=== PATIENT | male | born 1960 | race Caucasian/White ===

== ENCOUNTER → 2016-12-02 | Outpatient (CLI) | payer MEDICAID ==
[~2016-12-02] MED LIST: ALBU0.8322 IH; ALBU2.5V4 IN; ALBU2.5V4 NEB; ALBU8.5H2 IH; ALBUTEROL 0.083% NEB IH; ALBUTEROL INH; AMIT50TA3 PO; AMOX500C2 PO; ANTIBIOTIC; ASP325TEC PO; ASP81TEC PO; BP MED; BSP10T PO; CARV12.53 PO; CARV6.252 PO; CHOL2000 PO; CHOL5000 PO; CLIN-62 PO; CLOP75TA PO; CLPD75T PO; CRESTOR40 MG PO; CYCL10TA9 PO; DIAZ5TAB3 PO; DICL75TA2 PO; DICY20TA57 PO; DOXY100C2 PO; DULO60CA6 PO; ESZO3TAB30 PO; EZET10TA5 PO; FLT05NA16 NSEACH; FLUT1DIS26 IH; FLUT1DIS27 INH; FURO40TA4 PO; GABA600T2 PO; GBPN300C PO; GEMF600T3 PO; GLUCOPHAGE PO; Glucophage PO; HYDR-3714 PO; IOHEXOL 350 MG/ML 100 ML (OMNIPAQUE 350) VIAL IV ONE; ISM30TCR PO; KCL20TCR PO; LIRA0.6P3 SC; LISI20TA PO; LISI5TAB PO; LORA10CA PO; LRT10T PO; LVT.025T PO; MAGN400T6 PO; MELO-195 PO; METF1000 PO; MTF500T PO; NAPR-243 PO; NAPR1TAB21 PO; NAPR250T2 PO; NITR0.3T6 SL; NS 100 ML (IVPB) BAG IV ONE; NTR.4SL SL; OMEG1CAP51 PO; OMEP-10 PO; OXYC-12 PO; OXYC1CAP3 PO; OXYC1TAB25 PO; PRD20T PO; PRD50T PO; PREG50C PO; PS30T PO; QTP25T PO; RANI75TA30 PO; RMP2.5C PO; SIMV40TA4 PO; SUMA100T2 PO; TEMA15CA54 PO; TIOT18CA IH; TIOT18CA PO; TRAM50TA2 PO; VORT10TA PO; WAL ZAN PO; zocor
[2016-12-02] MEDS: CATHETER FLUSH 10 ML SYR IV PRN ×2 (10:00→10:02)
--- NOTE | 2016-12-02 13:30 | Diagnostic Imaging Report ---
PROCEDURE: CT chest with contrast only. TECHNIQUE: Multiple contiguous axial images were obtained through the chest after administration of intravenous contrast. INDICATION: Pulmonary nodules. COMPARISON: 05/10/14 exam. 75 cc of Omnipaque 350 is administered intravenously. FINDINGS: Previously seen nodules in the lung bases based on CT abdomen on 11/08/2016 are again noted with the largest nodule in posterior subpleural location measuring 7 mm and up to 4 mm size in the right lower lobe. These appear slightly more prominent compared to 11/08/16 exam. There is also a 4 mm nodule in the right middle lobe, image 32 along the minor fissure. This nodule appears to be present on 2014 exam. The nodules in the lung bases are new from 2014. There is no significant consolidation or mass. The heart size is normal. No pericardial or pleural effusion. No significantly enlarged mediastinal lymph node is seen. There is no lymphadenopathy in the axilla. The liver demonstrates diffuse hepatic steatosis. Minimal nonspecific thickening in the left adrenal gland is seen. The osseous structures demonstrate mild degenerative changes in the lower thoracic spine. IMPRESSION: Indeterminate bilateral lower lobe pulmonary nodules up to 7 mm in size. Followup unenhanced low-dose CT scan of the chest in 4-6 months is recommended. Dictated by: Dictated on workstation # [id number]
--- NOTE | 2016-12-02 15:14 | Diagnostic Imaging Report ---
KUB. INDICATION: Right kidney stone. FINDINGS: No definitive stones are identified. There is moderate amount of fecal material and silhouette related to enteric content in the abdomen. Vascular calcifications projecting over the pelvis seen. IMPRESSION: No definite stone identified. A small nonobstructive right kidney stone seen on recent CT scan is not visible on this radiograph. Dictated by: Dictated on workstation # [id number]
== END ==
LOC: RAD 08:55
PROVIDERS: ATTEND Nurse Practitioner Family
DX: R91.8 Other nonspecific abnormal finding of lung field (principal); N20.0 Calculus of kidney
CPT/HCPCS: 71260; 74000

== ENCOUNTER → 2017-02-06 | Outpatient (RCR) | payer MEDICAID ==
[~2017-02-06] MED LIST changes: -IOHEXOL 350 MG/ML 100 ML (OMNIPAQUE 350) VIAL IV ONE; -NS 100 ML (IVPB) BAG IV ONE
== END | disposition home or self-care (01) ==
LOC: WOUNDCARE 11-08 09:43
PROVIDERS: ATTEND Surgery
DX: L97.311 Non-pressure chronic ulcer of right ankle limited to breakdown of skin (principal); I87.331 Chronic venous hypertension (idiopathic) with ulcer and inflammation of right lower extremity; E11.622 Type 2 diabetes mellitus with other skin ulcer; I50.20 Unspecified systolic (congestive) heart failure; I89.0 Lymphedema, not elsewhere classified
CPT/HCPCS: 11042; 88305; 99212; 99213

== ENCOUNTER 2017-02-20 09:33 | Outpatient (RCR) | payer MEDICAID | END 2017-02-20 16:00 | disposition home or self-care (01) | LOC: WOUNDCARE 09:33 | PROVIDERS: ATTEND Surgery | DX: L97.311 Non-pressure chronic ulcer of right ankle limited to breakdown of skin (principal); I87.331 Chronic venous hypertension (idiopathic) with ulcer and inflammation of right lower extremity; E11.622 Type 2 diabetes mellitus with other skin ulcer; I50.20 Unspecified systolic (congestive) heart failure; I89.0 Lymphedema, not elsewhere classified | CPT/HCPCS: 99212 ==

== ENCOUNTER → 2017-02-20 | Outpatient (CLI) | payer MEDICAID ==
--- NOTE | 2017-02-20 11:35 | Diagnostic Imaging Report ---
EXAMINATION: Right lower extremity duplex venous ultrasound. TECHNIQUE: DVT protocol. Multiple sonographic images with color Doppler and waveform interrogation were performed of the right lower extremity veins with compression and augmentation maneuvers. INDICATION: Right leg pain, edema, and ulcers. FINDINGS: The right lower extremity veins from the groin to below the knee veins were examined with normal color-flow, compressibility and normal waveform demonstrated. The great saphenous vein is patent. IMPRESSION: No evidence of DVT in the right lower extremity. Dictated by: Dictated on workstation # [id number]
== END ==
LOC: RAD 10:41
PROVIDERS: ATTEND Surgery
DX: E11.622 Type 2 diabetes mellitus with other skin ulcer (principal); L97.212 Non-pressure chronic ulcer of right calf with fat layer exposed; I87.331 Chronic venous hypertension (idiopathic) with ulcer and inflammation of right lower extremity; I50.20 Unspecified systolic (congestive) heart failure; T65.222A Toxic effect of tobacco cigarettes, intentional self-harm, initial encounter; M79.661 Pain in right lower leg

== ENCOUNTER 2017-08-01 20:39 | Emergency (ER) | payer MEDICAID ==
[~2017-08-01] VITALS: Ht 180.3 cm; Wt 102.1 kg
[2017-08-01 22:35] LABS: BASOPHILS % (AUTO) 0 % (0-10); EOSINOPHILS # (AUTO) 0.2 10^3/uL (0.0-0.3); EOSINOPHILS % (AUTO) 2 % (0-10); LYMPHOCYTES # (AUTO) 1.9 X 10^3 (1.0-4.0); LYMPHOCYTES % (AUTO) 15 % (12-44); MEAN CORPUSCULAR HEMOGLOBIN 29 PG (25-34); MEAN CORPUSCULAR HGB CONC 33 G/DL (32-36); MEAN CORPUSCULAR VOLUME 86 FL (80-99); MEAN PLATELET VOLUME 10.8 FL (7.4-10.4); MONOCYTES # (AUTO) 1.6 X 10^3 (0.0-1.0); MONOCYTES % (AUTO) 13 % (0-12); NEUTROPHILS # (AUTO) 8.7 X 10^3 (1.8-7.8); NEUTROPHILS % (AUTO) 70 % (42-75); PLATELET COUNT 211 10^3/uL (130-400); RED BLOOD COUNT 5.32 10^6/uL (4.35-5.85); RED CELL DISTRIBUTION WIDTH 13.8 % (10.0-14.5); WHITE BLOOD COUNT 12.4 10^3/uL (4.3-11.0)
[2017-08-01 22:45] LABS: INR 0.9 (0.8-1.4); PROTHROMBIN TIME PATIENT 12.7 SEC (12.2-14.7)
[2017-08-01 22:52] LABS: ERYTHROCYTE SEDIMENTATION RATE 13 MM/HR (0-30)
[2017-08-01 23:03] LABS: ALANINE AMINOTRANSFERASE 16 U/L (0-55); ALBUMIN 3.5 GM/DL (3.2-4.5); ANION GAP 14 MMOL/L (5-14); ASPARTATE AMINO TRANSFERASE 14 U/L (5-34); BILIRUBIN,TOTAL 0.4 MG/DL (0.1-1.0); BLOOD UREA NITROGEN 26 MG/DL (7-18); BUN/CREATININE RATIO 27; CALCIUM 9.4 MG/DL (8.5-10.1); CARBON DIOXIDE 24 MMOL/L (21-32); CHLORIDE 101 MMOL/L (98-107); CREATININE SERUM 0.98 MG/DL (0.60-1.30); GFR ESTIMATED > 60; GLUCOSE 180 MG/DL (70-105); MAGNESIUM 2.2 MG/DL (1.8-2.4); POTASSIUM 3.9 MMOL/L (3.6-5.0); SODIUM 139 MMOL/L (135-145); TOTAL PROTEIN 7.6 GM/DL (6.4-8.2)
[2017-08-02] MEDS ORDERED: CLINDAMYCIN INJECTION 900 MG in NS (IVPB) 50 ML IV ONE (00:45)
[2017-08-02] MEDS ORDERED: CLIN300C11 PO (00:51)
--- NOTE | 2017-08-02 00:52 | ED Lower Extremity ---
General Chief Complaint: Lower Extremity Stated Complaint: RT LEG SWELLING/PAIN Nursing Triage Note: c/o R lower leg swelling with redness starting 1 day prior Nursing Sepsis Screen: No Definite Risk Source: patient (SOMEWHAT DIFFICULT HISTORIAN--CHANGES STORY/GIVES CONFLICTING) History of Present Illness Time seen by provider: 22:05 Initial Comments C/O RIGHT LEG PAIN, REDNESS AND SWELLING SINCE YESTERDAY STATES THIS IS A CHRONIC /FREQUENT PROBLEM, AND HAS HAD DVT'S IN BOTH LEGS SINCE 2006--STATES "THE FIRST TIME I HAD 4 BLOOD CLOTS IN MY RIGHT LEG AND 5 BLOOD CLOTS IN MY LEFT LEG" PT STATES HE IS SUPPOSED TO BE ON AN UNKNOWN BLOOD THINNER, BUT HAS NOT BEEN TAKING ANY FOR UNKNOWN LENGTH OF TIME --QUIT TAKING THEM. THEN LATER STATES HE IS SUPPOSED TO BE ON THE BLOOD THINNER BECAUSE HE HAS A STENT IN HIS HEART AND NOT FOR THE BLOOD CLOTS IN HIS LEG PT STATES HE ALSO HAS CHRONIC LEG SWELLING AND IS SUPPOSED TO BE ON LASIX, BUT DOES NOT TAKE THAT EITHER, BECAUSE IT MAKES HIM URINATE ALL THE TIME. PT HAS NOT TAKEN ANY OF HIS MEDICATIONS FOR A LONG TIME, AND WHEN HE DID TAKE THEM, HE NEVER TOOK THEM PRESCRIBED, AND ONLY TOOK THEM WHEN HE FELT LIKE IT , WHICH WAS NOT VERY OFTEN PT ALSO HAS BEEN VERY NON-COMPLIANT WITH ANY FOLLOW UP VISITS WITH HATTIE OR WITH DR. PITTMAN IN GENERAL PT ALSO LATER STATES THAT HE HAS BEEN TO WOUND CARE IN THE PAST FOR CHRONIC DIABETIC LEG ULCERS, BUT NOT FOR A LONG TIME. HAS A CHRONIC AREA OF IRRITATED, SCABBED AREA TO MEDIAL ASPECT OF RIGHT LOWER LEG/MEDIAL ANKLE AREA. BUT NO DRAINAGE OR BOB ULCERS AT THIS TIME. PT DENIES FEVER NO CHEST PAIN, PALPITATIONS OR SHORTNESS OF BREATH PT STATES NO PARESTHESIAS OR MOTOR DEFICITS ( BUT HAS PREVIOUS DX OF NEUROPATHY ) PCP: HATTIE PIPELAYING FITTER AGUEDA JIMENEZ AUTOMAT WATCHER: DR. PITTMAN Allergies and Home Medications Allergies Coded Allergies: Sulfa (Sulfonamide Antibiotics) (Verified Allergy, Unknown, 05/09/14) Home Medications Albuterol 8.5 Gm Hfa.aer.ad, 2 PUFF IH QID, (Reported) Albuterol Sulfate 0.83 Mg/Ml Solution, 0.83 MG NEB QID, (Reported) Aspirin 81 Mg Tabec, 81 MG PO DAILY, (Reported) Buspirone Hcl 10 Mg Tablet, 10 MG PO TID, (Reported) Carvedilol 12.5 Mg Tablet, 12.5 MG PO BID, (Reported) Cholecalciferol 5,000 Unit Capsule, 50,000 UNIT PO DAILY, (Reported) Clindamycin HCl 300 Mg Capsule, 300 MG PO QID, #40 Prescribed by: LIZA GODFREY on 08/02/17 0051 Clopidogrel 75 Mg Tablet, 75 MG PO DAILY, (Reported) Cyclobenzaprine Hcl 10 Mg Tablet, 10 MG PO TID PRN for MUSCLE SPASMS, (Reported) NEEDED FOR MUSCLE SPASMS Dicyclomine Hcl 20 Mg Tablet, 20 MG PO QID PRN for IRRITAL BOWEL SYNDROME, ( Reported) NEEDED FOR IRRITAL BOWEL SYNDROME Eszopiclone 3 Mg Tablet, 3 MG PO HS PRN for SLEEP, (Reported) NEEDED FOR SLEEP Ezetimibe 10 Mg Tablet, 10 MG PO DAILY, (Reported) Fluticasone Propionate 16 Gm [place], 1 SPRAYS NSEACH DAILY, (Reported) Fluticasone/Salmeterol 1 Disk Inhp, 1 PUFF INH BID, (Reported) Furosemide 40 Mg Tablet, 40 MG PO BID PRN for FLUID RETENTION, (Reported) AN NEEDED FOR FLUID RETENTION Gemfibrozil 600 Mg Tablet, 600 MG PO BID, (Reported) Isosorbide Mononitrate 30 Mg Tab, 30 MG PO DAILY, (Reported) Levothyroxine Sodium 25 Mcg Tablet, 25 MCG PO DAILY, (Reported) Liraglutide 0.6 Mg/0.1 Ml Pen.injctr, 1.8 MG SC DAILY WITH MEAL, (Reported) Lisinopril 20 Mg Tablet, 20 MG PO DAILY, (Reported) Loratadine 10 Mg Capsule, 10 MG PO DAILY PRN for ALLERGIES, (Reported) NEEDED FOR ALLERGIES Magnesium Oxide 400 Mg Tablet, 400 MG PO DAILY, (Reported) Metformin Hcl 1,000 Mg Tablet, 1,000 MG PO BID, (Reported) Nitroglycerin 0.3 Mg Tab.subl, 0.3 MG SL PRN PRN for CHEST PAIN, (Reported) PRN CHEST PAIN [place]-3 Fatty Acids/Fish Oil 1 Each Capsule, 1,000 MG PO BID, (Reported) Oxycodone Hcl/Acetaminophen 1 Tab Tablet, 1-2 TAB PO Q6H PRN for PAIN, (Reported ) 5-325MG NEEDED FOR PAIN Potassium Chloride 20 Meq Tabsr, 20 MEQ PO DAILY PRN for WITH LASIX , (Reported) TAKE WITH LAXIS NEEDED Pregabalin 50 Mg Cap, 50 MG PO TID PRN for NERVE PAIN, (Reported) NEEDED FOR NERVE PAIN Rosuvastatin Calcium 40 Mg Tablet, 40 MG PO DAILY, (Reported) Tiotropium [place] 1 Inh Aerp, 1 PUFF IH BID, (Reported) Vortioxetine Hydrobromide 10 Mg Tablet, 10 MG PO DAILY, (Reported) [Wal-[place]udy 150] , 300 MG PO DAILY, (Reported) Constitutional: no symptoms reported Respiratory: no symptoms reported Cardiovascular: no symptoms reported Musculoskeletal: see HPI Skin: see HPI Psychiatric/Neurological: See HPI Past Qwvuiht-Briqht-Ubbyzo Hx Patient Social History Alcohol Use: Occasionally Uses (HEAVIER USE IN THE PAST) Recreational Drug Use: Yes (THC) Smoking Status: Current Everyday Smoker (UP TO 3 PPD ) Type Used: Cigarettes Recent Foreign Travel: No Contact w/Someone Who Travel: No Recent Infectious Disease Expo: No Recent Hopitalizations: No Physical Abuse: No Sexual Abuse: No Immunizations Up To Date Tetanus Booster (TDap): Unknown Date of Pneumonia Vaccine: Jul 28, 2013 Date of Influenza Vaccine: Jul 28, 2013 Surgeries History of Surgeries: Yes (BACK-LOWER LUMBER, HERNIA REPAIR, LITHOTRIPSY, CARDIAC CATH WITH STENT) Surgeries: Abdominal, Cardiac, Coronary Stent, Orthopedic, Renal Respiratory History of Respiratory Disorde: Yes Respiratory Disorders: Sleep Apnea, COPD, Emphysema Currently Using CPAP: Yes Currently Using BIPAP: No Cardiovascular History of Cardiac Disorders: Yes (CARDIAC CATH WITH STENT) Cardiac Disorders: Chronic Edema/Swelling, Coronary Artery Disease, Deep Vein Thrombosis, Heart Attack, High Cholesterol, Hypertension, Peripheral Vascular Neurological History of Neurological Disord: Yes Neurological Disorders: Headaches /Migraines, Neuropathy Reproductive System Hx Reproductive Disorders: No Genitourinary History of Genitourinary Disor: Yes Genitourinary Disorders: Kidney Stones Gastrointestinal History of Gastrointestinal Di: Yes (UMBILICAL HERNIA) Gastrointestinal Disorders: Abdominal Hernia, Gastroesophageal Reflux Musculoskeletal History of Musculoskeletal Dis: Yes Musculoskeletal Disorders: Degenerate Disk Disease, Arthritis, Chronic Back Pain Endocrine History of Endocrine Disorders: Yes Endocrine Disorders: Hypothyroidsim, Diabetes, Non-Insulin dep Cancer History of Cancer: No Psychosocial History of Psychiatric Problem: Yes Behavioral Health Disorders: Depression Suicide Risk Score: 0 Integumentary History of Skin or Integumenta: Yes (DIABETIC LEG ULCERS--LAST TX AT WOUND CARE 01/2017--RIGHT CALF WOUND, LEG CELLULITIS; "STAPH" INFECTIONS, PER PT. ) Skin/Integumentary Disorders: Eczema, Psoriasis Blood Transfusions History of Blood Disorders: No Physical Exam Vital Signs Vital Sign - Last 12Hours 08/01/17 21:26 Temp 98.5 Pulse 94 Resp 18 B/P (MAP) 121/78 Pulse Ox 96 Capillary Refill : Less Than 3 Seconds General Appearance: WD/WN, no apparent distress, other (REEKS OF CIGARETTES) Cardiovascular: regular rate, rhythm Respiratory: normal breath sounds Legs: right leg other (MARKED ERYTHEM AND WARMTH TO RIGHT LOWER LEG AND FOOT-- EXTENDS TO JUST BELOW KNEE. 3+ EDEMA OF RIGHT LEG. CHRONIC APPEARING AREA OF SCALING, SCABBING, MACERATION WITH TINY AREAS OF FISSURING TO SKIN TO MEDIAL ASPECT OF RIGHT LOWER LEG/MEDIAL ANKLE AREA WITHOUT DISCRETE ULCERATION. NO DRAINAGE. CHRONIC VENOUS STASIS CHANGES TO BILATERAL LOWER LEGS. UNABLE TO PALPATE PULSES IN FEET BUT FEET ARE EQUALLY COOL AND SLIGHTLY DUSKY, WITH GROSS MOTOR INTACT. SLIGHTLY DECREASED SENSATION TO FEET BILATERALLY. 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, alert, normal mood/affect, oriented x 3 Skin: normal color, warm/dry, other ( ABOVE) Progress/Results/Core Measures Results/Orders Lab Results Laboratory Tests Test 08/01/17 22:30 Range/Units White Blood Count 12.4 H 4.3-11.0 10^3/uL Red Blood Count 5.32 4.35-5.85 10^6/uL Hemoglobin 15.2 13.3-17.7 G/DL Hematocrit 46 40-54 % Mean Corpuscular Volume 86 80-99 FL Mean Corpuscular Hemoglobin 29 25-34 PG Mean Corpuscular Hemoglobin Concent 33 32-36 G/DL Red Cell Distribution Width 13.8 10.0-14.5 % Platelet Count 211 130-400 10^3/uL Mean Platelet Volume 10.8 H 7.4-10.4 FL Neutrophils (%) (Auto) 70 42-75 % Lymphocytes (%) (Auto) 15 12-44 % Monocytes (%) (Auto) 13 H 0-12 % Eosinophils (%) (Auto) 2 0-10 % Basophils (%) (Auto) 0 0-10 % Neutrophils # (Auto) 8.7 H 1.8-7.8 X 10^3 Lymphocytes # (Auto) 1.9 1.0-4.0 X 10^3 Monocytes # (Auto) 1.6 H 0.0-1.0 X 10^3 Eosinophils # (Auto) 0.2 0.0-0.3 10^3/uL Basophils # (Auto) 0.0 0.0-0.1 10^3/uL Erythrocyte Sedimentation Rate 13 0-30 MM/HR Prothrombin Time 12.7 12.2-14.7 SEC INR Comment 0.9 0.8-1.4 Activated Partial Thromboplast Time 28 24-35 SEC D-Dimer 0.83 H 0.00-0.49 UG/ML Sodium Level 139 135-145 MMOL/L Potassium Level 3.9 3.6-5.0 MMOL/L Chloride Level 101 98-107 MMOL/L Carbon Dioxide Level 24 21-32 MMOL/L Anion Gap 14 5-14 MMOL/L Blood Urea Nitrogen 26 H 7-18 MG/DL Creatinine 0.98 0.60-1.30 MG/DL Estimat Glomerular Filtration Rate > 60 BUN/Creatinine Ratio 27 Glucose Level 180 H 70-105 MG/DL Calcium Level 9.4 8.5-10.1 MG/DL Magnesium Level 2.2 1.8-2.4 MG/DL Total Bilirubin 0.4 0.1-1.0 MG/DL Aspartate Amino Transf (AST/SGOT) 14 5-34 U/L Alanine Aminotransferase (ALT/SGPT) 16 0-55 U/L Alkaline Phosphatase 59 40-136 U/L C-Reactive Protein High Sensitivity 24.10 H 0.00-0.50 MG/DL B-Type Natriuretic Peptide < 10.0 <100.0 PG/ML Total Protein 7.6 6.4-8.2 GM/DL Albumin 3.5 3.2-4.5 GM/DL My Orders Orders - LIZA GODFREY DO Saline Lock/Iv-Start (08/01/17 22:12) BNP (08/01/17 22:12) Cbc With Automated Diff (08/01/17 22:12) Comprehensive Metabolic Panel (08/01/17 22:12) Hs C Reactive Protein (08/01/17 22:12) Erythrocyte Sedimentation Rate (08/01/17 22:12) Fibrin Degradation Products (08/01/17 22:12) Magnesium (08/01/17 22:12) Protime With Inr (08/01/17 22:12) Partial Thromboplastin Time (08/01/17 22:12) Blood Culture (08/01/17 22:12) Us Venous Lower Ext Rt (08/01/17 22:12) Clindamycin Injection (Cleocin Injection (08/02/17 00:45) Medications Given in ED Current Medications Medications Dose Ordered Sig/Sergio Route Start Time Stop Time Status Last Admin Dose Admin Clindamycin Phosphate 900 mg/ Sodium Chloride 56 ml @ 100 mls/hr ONCE ONCE IV 08/02/17 00:45 08/02/17 01:12 DC 08/02/17 00:55 100 MLS/HR Vital Signs/I&O Vital Sign - Last 12Hours 08/01/17 08/02/17 21:26 01:11 Temp 98.5 98.5 Pulse 94 90 Resp 18 20 B/P (MAP) 121/78 Pulse Ox 96 98 Blood Pressure Mean: 92 Diagnostic Imaging Comments ULTRASOUND / DOPPLER RIGHT LEG--NO DVT PER TECH REPORT AT 2344 AND PER [facility] VIA FAX AT 0033 Departure Communication (PCP) 0045--SPOKE WITH DR. Caitlin GOLD, PT HAS NORMAL WBC, NO FEVER AND HAS NOT HAD TRIAL OF ORAL ANTIBIOTICS AT THIS POINT, AND PT PREFERS TO GO HOME AND FOLLOW UP IN CLINIC--WILL GIVE PT IV CLINDAMYCIN HERE AND SEND HOME WITH RX FOR CLINDAMYCIN AND SHE WILL SEE PT IN CLINIC AT 1:40 PM ON Monday08/03/17 Impression Impression: Primary Impression: CELLULITIS RIGHT LOWER LEG AND FOOT Additional Impressions: NIDDM Non-compliance Peripheral neuropathy Peripheral vascular disease Disposition: HOME, SELF-CARE Condition: Stable Departure-Patient Inst. Referrals: FREDY ELIZONDO DO (PCP) Primary Care Physician AGUEDA JIMENEZ (Family) Primary Care Physician MAGDALENA GOLD MD Patient Instructions: Cellulitis (Skin Infection), Adult (DC), Diabetes and Infections Add. Discharge Instructions: ELEVATE LEG MUCH POSSIBLE FOLLOW UP WITH DR. Caitlin GOLD ON MONDAY AT 1:40 AT [facility] RETURN TO ER IF WORSE All discharge instructions reviewed with patient and/or family. Voiced understanding. Scripts Clindamycin HCl (Clindamycin HCl) 300 Mg Capsule 300 MG PO QID for FOR INFECTION, #40 CAP Prov: LIZA GODFREY DO 08/02/17 LIZA GODFREY DO Aug 02, 2017 00:51
[2017-08-02 01:11] VITALS: BP 121/79
--- NOTE | 2017-08-02 06:39 | Diagnostic Imaging Report ---
PROCEDURE: US right lower extremity venous. TECHNIQUE: Multiple real-time grayscale images were obtained over the right lower extremity in various projections. Additional duplex Doppler and color Doppler images were also obtained. INDICATION: Right lower extremity pain. FINDINGS: There is normal color flow enhancement from the external iliac vein to the ankle. Calf compression shows normal augmentation of flow at the popliteal level. No evidence of popliteal cyst. IMPRESSION: No evidence of venous thrombosis, right lower extremity. These findings are concordant with the preliminary report. Dictated by: Dictated on workstation # [id number]
== END 2017-08-02 01:11 | disposition home or self-care (01) ==
LOC: EDUNIT# 20:39 → ER 20:41
DX: L03.115 Cellulitis of right lower limb (principal); G62.9 Polyneuropathy, unspecified; E11.51 Type 2 diabetes mellitus with diabetic peripheral angiopathy without gangrene; I73.9 Peripheral vascular disease, unspecified; I25.10 Atherosclerotic heart disease of native coronary artery without angina pectoris; I25.2 Old myocardial infarction; E78.00 Pure hypercholesterolemia, unspecified; I10 Essential (primary) hypertension; G43.909 Migraine, unspecified, not intractable, without status migrainosus; K21.9 Gastro-esophageal reflux disease without esophagitis; M19.90 Unspecified osteoarthritis, unspecified site; E03.9 Hypothyroidism, unspecified; E11.40 Type 2 diabetes mellitus with diabetic neuropathy, unspecified; E11.621 Type 2 diabetes mellitus with foot ulcer; L97.219 Non-pressure chronic ulcer of right calf with unspecified severity; F32.9 Major depressive disorder, single episode, unspecified; G47.30 Sleep apnea, unspecified; F17.210 Nicotine dependence, cigarettes, uncomplicated; F12.10 Cannabis abuse, uncomplicated; Z86.718 Personal history of other venous thrombosis and embolism; Z87.19 Personal history of other diseases of the digestive system; Z91.14 Patient's other noncompliance with medication regimen; Z87.442 Personal history of urinary calculi; Z95.5 Presence of coronary angioplasty implant and graft; Z79.82 Long term (current) use of aspirin; Z79.84 Long term (current) use of oral hypoglycemic drugs
CPT/HCPCS: 36415; 80053; 83735; 83880; 85025; 85379; 85610; 85652; 85730; 86141; 87040; 96374

== ENCOUNTER 2017-08-03 12:30 | Inpatient (IN) | payer MEDICAID ==
[~2017-08-03] VITALS: Ht 181.6 cm; Wt 109.8 kg
[~2017-08-03 12:30] MED LIST changes: +CLIN300C11 PO
--- OUTSIDE RECORDS SUMMARY | 2017-08-03 15:21 | XMS REPORT ---
Author Author AGUEDA JIMENEZ Organization [employer] Address Unknown Phone Unavailable Care Team Providers Care Marker Maker Name Role Phone AGUDEA JIMENEZ CP Unavailable Allergies No Known Allergies Problems Problem Type Condition Code Onset Dates Condition Status Problem Obstructive chronic bronchitis, with (acute) exacerbation 491.21 Active Problem Other specified disorder of skin 709.8 Active Problem Unspecified hereditary and idiopathic peripheral neuropathy 356.9 Active Problem Hypertension 401.9 Active Assessment Type 2 diabetes mellitus with diabetic neuropathy, unspecified E11.40 Active Problem Hyperlipemia 272.4 Active Problem Type 2 diabetes mellitus with diabetic neuropathy, unspecified E11.40 Active Problem Disorders of magnesium metabolism 275.2 Active Problem Unspecified essential hypertension 401.9 Active Problem CAD (coronary artery disease) 414.00 Active Problem Chest pain, unspecified 786.50 Active Problem Plantar fascial fibromatosis 728.71 Active Problem Generalized osteoarthrosis, unspecified site 715.00 Active Problem Nondependent tobacco use disorder 305.1 Active Problem Diabetes with neurological manifestations, type II or unspecified type , not stated as uncontrolled 250.60 Active Problem Benign neoplasm of colon 211.3 Active Problem Unspecified vitamin D deficiency 268.9 Active Problem Depressive disorder, not elsewhere classified 311 Active Problem Unspecified hypothyroidism 244.9 Active Problem Anxiety state, unspecified 300.00 Active Problem Cervicalgia 723.1 Active Medications No Known Medications Results No Known Results Summary Purpose [employer] Submission
--- OUTSIDE RECORDS SUMMARY | 2017-08-03 15:21 | XMS REPORT ---
Author Author AGUEDA JIMENEZ [facility] [employer] Address Unknown Phone Unavailable Care Team Providers Care Patient Access Registrar Name Role Phone AGUEDA JIMENEZ Unavailable Allergies, Adverse Reactions, Alerts Substance Reaction Event Type SulfADIAZINE Info Not Available Drug Allergy Problems Problem Type Condition Code Onset Dates Condition Status Problem Essential hypertension I10 Active Problem Type 2 diabetes mellitus with diabetic neuropathy E11.40 Active Problem Neuropathy G62.9 Active Problem Syncope, unspecified syncope type R55 Active Problem Cellulitis of right lower leg L03.115 Active Problem Left anterior knee pain M25.562 Active Problem Hyperlipemia E78.5 Active Problem Diabetes mellitus type 2, uncontrolled E11.65 Active Problem COPD (chronic obstructive pulmonary disease) J44.9 Active Problem Hypertension I10 Active Assessment CAD (coronary artery disease) I25.10 Active Assessment Left anterior knee pain M25.562 Active Assessment Syncope, unspecified syncope type R55 Active Problem Sleep apnea G47.30 Active Problem CAD (coronary artery disease) I25.10 Active Problem Chronic pain G89.29 Active Problem Mixed hyperlipidemia E78.2 Active Problem Depression F32.9 Active Problem Acquired hypothyroidism E03.9 Active Medications Medication Code System Code Instructions Start Date End Date Status Dosage Vytorin [facility] [address]-49 10-10 MG Orally Once a day 1 tablet ProAir HFA [facility] [address]-49 108 (90 Base) MCG/ACT INHALE TWO PUFFS BY MOUTH EVERY 4 TO 6 HOURS NEEDED Advair Diskus [facility] [address]-69 500-50 MCG/DOSE INHALE ONE PUFF BY MOUTH TWICE DAILY BusPIRone HCl [facility] [address]-46 10 MG TAKE ONE TABLET BY MOUTH TWICE DAILY Plavix [facility] 78493831867 75 MG TAKE ONE TABLET BY MOUTH DAILY Ranitidine HCl [facility] 88556332750 150 MG TAKE ONE TABLET BY MOUTH TWICE DAILY Lyrica [facility] [address]-75 75 MG Orally 3 times a day 1 capsule Spiriva HandiHaler [facility] [address]-21 18 MCG INHALE CONTENTS OF ONE CAPSULE BY MOUTH ONCE DAILY (TWO INHALATIONS PER ONE CAPSULE) Rozerem [facility] [address]-31 8 MG TAKE ONE TABLET BY MOUTH DAILY AT BEDTIME FOR SLEEP Lisinopril [facility] [address]-14 20 mg Orally Once a day 1 tablet Brintellix [facility] 87433263145 10 MG TAKE ONE TABLET BY MOUTH DAILY AT THE SAME TIME EACH DAY Metformin HCl [facility] [address]-87 1000 MG oral twice daily with morning and evening meals 1 tablet Levothyroxine Sodium [facility] [address]-85 25 MCG Orally Once a day 1 tablet Cyclobenzaprine HCl [facility] [address]-15 10 MG TAKE ONE TABLET BY MOUTH THREE TIMES DAILY NEEDED Naproxen [facility] [address]-27 500 MG TAKE ONE TABLET BY MOUTH TWICE DAILY Albuterol Sulfate [facility] 36551254162 (2.5 MG/3ML) 0.083% USE ONE VIAL PER NEBULIZER EVERY 4 HOURS NEEDED FOR WHEEZING OR COUGH Isosorbide Mononitrate CR [facility] 95055648193 30 MG TAKE ONE TABLET BY MOUTH DAILY Carvedilol [facility] 23141027154 12.5 MG TAKE ONE TABLET BY MOUTH TWICE DAILY Procedures Procedure Coding System Code Date LAB NOT BILLED BY [facility] CPT-4 NOBLL June 14, 2016 VENIPUNCT, ROUTINE* CPT-4 46186 June 14, 2016 X-RAY EXAM OF KNEE, 3 CPT-4 31777 June 14, 2016 TORADOL (IM) 15 MG/ML (UP TO 15 MG) CPT-4 J1885 June 14, 2016 Office Visit, Est Pt., Level 4 CPT-4 17843 June 14, 2016 THER/PROPH/DIAG INJ, SC/IM CPT-4 97019 June 14, 2016 Vital Signs Date/Time: June 14, 2016 Cardiac Monitoring Heart Rate 84 bpm Weight 257.0 lbs Height 70 in Blood Pressure Diastolic 82 mmHg Blood Pressure Systolic 138 mmHg Results No Known Results Summary Purpose [employer] Submission
--- OUTSIDE RECORDS SUMMARY | 2017-08-03 15:21 | XMS REPORT ---
Author Author AGUEDA JIMENEZ Organization [employer] Address Unknown Phone Unavailable Care Team Providers Care Supply Chain Coordinator Name Role Phone AGUEDA JIMENEZ CP Unavailable Allergies No Known Allergies Problems Problem Type Condition ICD-9 Code Onset Dates Condition Status Problem Nondependent tobacco use disorder 305.1 Active Problem Diabetes with neurological manifestations, type II or unspecified type , not stated as uncontrolled 250.60 Active Problem Obstructive chronic bronchitis, with (acute) exacerbation 491.21 Active Problem Plantar fascial fibromatosis 728.71 Active Problem Unspecified hereditary and idiopathic peripheral neuropathy 356.9 Active Problem Generalized osteoarthrosis, unspecified site 715.00 Active Problem Other specified disorder of skin 709.8 Active Problem Disorders of magnesium metabolism 275.2 Active Problem Unspecified essential hypertension 401.9 Active Problem Chronic dental pain 525.9 Active Problem Hypertension 401.9 Active Problem Polyuria 788.42 Active Problem Other specified local infections of skin and subcutaneous tissue 686.8 Active Problem Sinusitis 473.9 Active Problem Pain in joint, forearm 719.43 Active Problem Diabetes mellitus type 2, uncontrolled 250.02 Active Problem Chest pain, unspecified 786.50 Active Problem Hyperlipemia 272.4 Active Problem CAD (coronary artery disease) 414.00 Active Problem Anxiety state, unspecified 300.00 Active Problem Benign neoplasm of colon 211.3 Active Problem Other dyspnea and respiratory abnormalities 786.09 Active Problem Depressive disorder, not elsewhere classified 311 Active Problem Unspecified hypothyroidism 244.9 Active Problem Cervicalgia 723.1 Active Problem Diabetes mellitus without mention of complication, type II or unspecified type, uncontrolled 250.02 Active Problem Unspecified vitamin D deficiency 268.9 Active Medications Medication Code System Code Instructions Start Date End Date Status Dosage Lisinopril [facility] [address]-58 20 MG TAKE ONE TABLET BY MOUTH DAILY Vytorin [facility] [address]-83 10-10 MG Orally Once a day. PT NEEDS FASTING LABS April 14, 2015 1 tablet Results No Known Results Summary Purpose [employer] Submission
--- OUTSIDE RECORDS SUMMARY | 2017-08-03 15:21 | XMS REPORT ---
Author Author AGUEDA JIMENEZ Organization eClinicalWorks Address Unknown Phone Unavailable Care Team Providers Care Roll Scale Worker Name Role Phone AGUEDA JIMENEZ CP Unavailable Allergies No Known Allergies Problems Problem Type Condition Code Onset Dates Condition Status Problem Depression F32.9 Active Problem Chronic pain G89.29 Active Problem Neuropathy G62.9 Active Problem Essential hypertension I10 Active Problem Type 2 diabetes mellitus with diabetic neuropathy E11.40 Active Problem CAD (coronary artery disease) I25.10 Active Problem Sleep apnea G47.30 Active Problem Acquired hypothyroidism E03.9 Active Problem Mixed hyperlipidemia E78.2 Active Medications Medication Code System Code Instructions Start Date End Date Status Dosage Lyrica [facility] [address]-33 75 MG TAKE ONE CAPSULE BY MOUTH THREE TIMES DAILY FOR FIBROMYALGIA OR IDIOPATHIC NEUROPATHY Results No Known Results Summary Purpose eClinicalWorks Submission
--- OUTSIDE RECORDS SUMMARY | 2017-08-03 15:21 | XMS REPORT ---
Author Author FREDY ELIZONDO [facility] eClinicalWorks Address Unknown Phone Unavailable Care Team Providers Care Manager Demand Name Role Phone FREDY ELIZONDO CP Unavailable Allergies No Known Allergies Problems [...] Instructions Start Date End Date Status Dosage Oxycodone-Acetaminophen [facility] [address]-45 7.5-325 MG Orally 3 times a day prn- must last 4 weeks June 12, 2015 1 tablet as needed Results No Known Results Summary Purpose eClinicalWorks Submission
--- OUTSIDE RECORDS SUMMARY | 2017-08-03 15:21 | XMS REPORT ---
Author Author AGUEDA JIMENEZ [facility] eClinicalWorks Address Unknown Phone Unavailable Care Team Providers Care Soaking Pit Operator Name Role Phone AGUEDA JIMENEZ CP Unavailable Allergies, Adverse Reactions, Alerts Substance Reaction Event Type SulfADIAZINE Info Not Available Drug Allergy Problems Problem Type Condition Code Onset Dates Condition Status Assessment Type 2 diabetes mellitus with diabetic neuropathy E11.40 Active Problem Depression F32.9 Active Problem Chronic pain G89.29 Active Problem Neuropathy G62.9 Active Problem Essential hypertension I10 Active Problem Type 2 diabetes mellitus with diabetic neuropathy E11.40 Active Problem CAD (coronary artery disease) I25.10 Active Problem Sleep apnea G47.30 Active Problem Acquired hypothyroidism E03.9 Active Problem Mixed hyperlipidemia E78.2 Active Assessment Chronic pain G89.29 Active Assessment Depression F32.9 Active Assessment Upper respiratory infection J06.9 Active Assessment COPD (chronic obstructive pulmonary disease) J44.9 Active Assessment Mixed hyperlipidemia E78.2 Active Assessment Acquired hypothyroidism E03.9 Active Assessment Sleep apnea G47.30 Active Assessment Essential hypertension I10 Active Assessment CAD (coronary artery disease) I25.10 Active Assessment Neuropathy G62.9 Active Medications Medication Code System Code Instructions Start Date End Date Status Dosage Levothyroxine Sodium [facility] [address]-27 25 MCG Orally Once a day 1 tablet Lisinopril [facility] [address]-32 20 MG TAKE ONE TABLET BY MOUTH DAILY Oxycodone-Acetaminophen [facility] [address]-17 7.5-325 MG Orally 3 times a day- must last 30 days June 12, 2015 1 tablet as needed Albuterol Sulfate [facility] 48544243198 (2.5 MG/3ML) 0.083% USE ONE VIAL PER NEBULIZER EVERY 4 HOURS NEEDED FOR WHEEZING OR COUGH Brintellix [facility] 36238171810 10 MG TAKE ONE TABLET BY MOUTH DAILY AT THE SAME TIME EACH DAY Cyclobenzaprine HCl [facility] 13845955340 10 MG TAKE ONE TABLET BY MOUTH THREE TIMES DAILY NEEDED BusPIRone HCl NDC 31858119832 10 MG TAKE ONE TABLET BY MOUTH TWICE DAILY ProAir HFA [facility] 33425238435 108 (90 Base) MCG/ACT INHALE TWO PUFFS BY MOUTH EVERY 4 TO 6 HOURS NEEDED Carvedilol [facility] 08631930872 12.5 MG TAKE ONE TABLET BY MOUTH TWICE DAILY Naprosyn [facility] [address]-18 500 MG Orally every 12 hrs 1 tablet as needed Vytorin [facility] [address]-74 10-10 MG Orally Once a day April 14, 2015 1 tablet Naproxen [facility] 06811797466 500 MG TAKE ONE TABLET BY MOUTH TWICE DAILY Metformin HCl [facility] [address]-96 1000 MG TAKE ONE TABLET BY MOUTH TWICE DAILY WITH MORNING AND EVENING MEALS Spiriva HandiHaler [facility] 79828494947 18 MCG INHALE CONTENTS OF ONE CAPSULE BY MOUTH ONCE DAILY (TWO INHALATIONS PER ONE CAPSULE) Advair Diskus [facility] 22742270862 500-50 MCG/DOSE INHALE ONE PUFF BY MOUTH TWICE DAILY Lyrica [facility] 82093069841 75 MG TAKE ONE CAPSULE BY MOUTH THREE TIMES DAILY FOR FIBROMYALGIA OR IDIOPATHIC NEUROPATHY Doxycycline Hyclate [facility] [address]-40 100 MG Orally every 12 hrs Oct 06, 2015 Oct 16, 2015 1 capsule Triamcinolone Acetonide [facility] [address]-36 0.1 % Externally Three times a day prn Aug 15, 2015 1 application to affected area Plavix [facility] 54043384739 75 MG TAKE ONE TABLET BY MOUTH DAILY Isosorbide Mononitrate CR [facility] 87818357386 30 MG TAKE ONE TABLET BY MOUTH DAILY Ranitidine HCl [facility] 40812567142 150 MG TAKE ONE TABLET BY MOUTH TWICE DAILY Rozerem [facility] [address]-79 8 MG at hs prn for sleep TAKE ONE TABLET BY MOUTH DAILY Procedures Procedure Coding System Code Date ASSAY THYROID STIM HORMONE CPT-4 11090 Oct 06, 2015 COMPREHEN METABOLIC PANEL CPT-4 31593 Oct 06, 2015 GLYCATED HEMOGLOBIN TEST CPT-4 36149 Oct 06, 2015 VENIPUNCT, ROUTINE* CPT-4 29933 Oct 06, 2015 Office Visit, Est Pt., Level 4 CPT-4 70765 Oct 06, 2015 Vital Signs Date/Time: Oct 06, 2015 Temperature 97.0 F Weight 270.3 lbs Height 70 in BMI 38.78 Index Blood Pressure Diastolic 98 mmHg Blood Pressure Systolic 172 mmHg Cardiac Monitoring Heart Rate 80 bpm Results Name Result Date Reference Range Unit Abnormality Flag A1C (IN HOUSE) Summary Purpose eClinicalWorks Submission
--- OUTSIDE RECORDS SUMMARY | 2017-08-03 15:22 | XMS REPORT ---
Author Author AGUEDA JIMENEZ [facility] eClinicalWorks Address Unknown Phone Unavailable Care Team Providers Care Culinary Arts Instructor Name Role Phone AGUEDA JIMENEZ CP Unavailable Allergies, Adverse Reactions, Alerts Substance Reaction Event Type SulfADIAZINE Info Not Available Drug Allergy Problems Problem Type Condition ICD-9 Code Onset Dates Condition Status Assessment Itching 698.9 Active Problem Nondependent tobacco use disorder 305.1 [...] Date End Date Status Dosage Vytorin [facility] [address]-08 10-10 MG Orally Once a day. PT NEEDS FASTING LABS April 14, 2015 1 tablet Spiriva HandiHaler [facility] 38337714549 18 MCG INHALE CONTENTS OF ONE CAPSULE BY MOUTH ONCE DAILY (TWO INHALATIONS PER ONE CAPSULE) Ranitidine HCl [facility] 10543973690 150 MG TAKE ONE TABLET BY MOUTH TWICE DAILY BusPIRone HCl [facility] 70853833397 10 MG TAKE ONE TABLET BY MOUTH TWICE DAILY Plavix [facility] 64778177382 75 MG TAKE ONE TABLET BY MOUTH DAILY Levothyroxine Sodium [facility] [address]-26 25 MCG Orally Once a day 1 tablet Carvedilol [facility] 86639298604 12.5 MG TAKE ONE TABLET BY MOUTH TWICE DAILY Oxycodone-Acetaminophen [facility] [address]-83 7.5-325 MG Orally 3 times a day- must last 30 days June 12, 2015 1 tablet as needed Albuterol Sulfate [facility] 85389742888 (2.5 MG/3ML) 0.083% USE ONE VIAL PER NEBULIZER EVERY 4 HOURS NEEDED FOR WHEEZING OR COUGH Naprosyn [facility] [address]-16 500 MG Orally every 12 hrs 1 tablet as needed ProAir HFA [facility] 43504358250 108 (90 Base) MCG/ACT INHALE TWO PUFFS BY MOUTH EVERY 4 TO 6 HOURS NEEDED Metformin HCl [facility] [address]-28 1000 MG TAKE ONE TABLET BY MOUTH TWICE DAILY WITH MORNING AND EVENING MEALS Lyrica [facility] 93918959859 75 MG TAKE ONE CAPSULE BY MOUTH THREE TIMES DAILY FOR FIBROMYALGIA OR IDIOPATHIC NEUROPATHY Rozerem [facility] [address]-16 8 MG at hs prn for sleep TAKE ONE TABLET BY MOUTH DAILY Advair Diskus [facility] 42524026223 500-50 MCG/DOSE INHALE ONE PUFF BY MOUTH TWICE DAILY Brintellix [facility] 18799695388 10 MG TAKE ONE TABLET BY MOUTH DAILY AT THE SAME TIME EACH DAY Isosorbide Mononitrate CR [facility] 71875787752 30 MG TAKE ONE TABLET BY MOUTH DAILY Triamcinolone Acetonide [facility] [address]-53 0.1 % Externally Three times a day prn Aug 15, 2015 1 application to affected area Naproxen [facility] 80339337457 500 MG TAKE ONE TABLET BY MOUTH TWICE DAILY Lisinopril [facility] [address]-65 20 MG TAKE ONE TABLET BY MOUTH DAILY Cyclobenzaprine HCl [facility] 27705495163 10 MG TAKE ONE TABLET BY MOUTH THREE TIMES DAILY NEEDED Augmentin [facility] [address]-25 875-125 MG Orally every 12 hrs Aug 08, 2015 Aug 18, 2015 1 tablet Procedures Procedure Coding System Code Date Office Visit, Est Pt., Level 3 CPT-4 20050 Aug 15, 2015 Vital Signs Date/Time: Aug 15, 2015 Temperature 97.7 F Weight 266.4 lbs Height 70 in BMI 38.22 Index Blood Pressure Diastolic 86 mmHg Blood Pressure Systolic 138 mmHg Cardiac Monitoring Heart Rate 88 bpm Results No Known Results Summary Purpose eClinicalWorks Submission
--- OUTSIDE RECORDS SUMMARY | 2017-08-03 15:22 | XMS REPORT ---
Author Author JELLY CAREY eClinicalWorks Address Unknown Phone Unavailable Care Team Providers Care Shopping Investigator Name Role Phone JELLY CAREY Unavailable Allergies, Adverse Reactions, Alerts Substance Reaction Event Type SulfADIAZINE Info Not Available Drug Allergy Problems Problem Type Condition Code Onset Dates Condition Status Problem Neuropathy G62.9 Active Problem Diabetes mellitus type 2, uncontrolled E11.65 Active Problem Type 2 diabetes mellitus with diabetic neuropathy E11.40 Active Problem Syncope, unspecified syncope type R55 Active Assessment Hyperlipemia E78.5 Active Problem Cellulitis of right lower leg L03.115 Active Assessment Claudication I73.9 Active Problem Left anterior knee pain M25.562 Active Problem Hypertension I10 Active Problem Hyperlipemia E78.5 Active Problem Claudication I73.9 Active Problem COPD (chronic obstructive pulmonary disease) J44.9 Active Assessment Chest pain, unspecified type R07.9 Active Problem Chronic pain G89.29 Active Assessment CAD (coronary artery disease) I25.10 Active Assessment Dyspnea, unspecified type R06.00 Active Problem CAD (coronary artery disease) I25.10 Active Problem Mixed hyperlipidemia E78.2 Active Problem Depression F32.9 Active Problem Acquired hypothyroidism E03.9 Active Problem Sleep apnea G47.30 Active Problem Essential hypertension I10 Active Medications Medication Code System Code Instructions Start Date End Date Status Dosage Plavix [facility] 89739955433 75 MG TAKE ONE TABLET BY MOUTH DAILY Rozerem [facility] [address]-68 8 MG TAKE ONE TABLET BY MOUTH DAILY AT BEDTIME FOR SLEEP Levothyroxine Sodium [facility] [address]-56 25 MCG Orally Once a day 1 tablet Lisinopril [facility] [address]-14 20 mg Orally Once a day 1 tablet Isosorbide Mononitrate CR [facility] 10554771523 30 MG TAKE ONE TABLET BY MOUTH DAILY Vytorin [facility] 35044164197 10-10 MG Orally Once a day 1 tablet BusPIRone HCl [facility] [address]-62 10 MG TAKE ONE TABLET BY MOUTH TWICE DAILY Albuterol Sulfate [facility] 21784839497 (2.5 MG/3ML) 0.083% USE ONE VIAL PER NEBULIZER EVERY 4 HOURS NEEDED FOR WHEEZING OR COUGH Cyclobenzaprine HCl [facility] [address]-74 10 MG TAKE ONE TABLET BY MOUTH THREE TIMES DAILY NEEDED ProAir HFA [facility] [address]-99 108 (90 Base) MCG/ACT INHALE TWO PUFFS BY MOUTH EVERY 4 TO 6 HOURS NEEDED Spiriva HandiHaler [facility] [address]-50 18 MCG INHALE CONTENTS OF ONE CAPSULE BY MOUTH ONCE DAILY (TWO INHALATIONS PER ONE CAPSULE) Aspirin Adult Low Dose [facility] [address]-46 81 MG Orally Once a day 1 tablet Brintellix [facility] 66715037145 10 MG TAKE ONE TABLET BY MOUTH DAILY AT THE SAME TIME EACH DAY Lyrica [facility] [address]-96 75 MG Orally 3 times a day 1 capsule Carvedilol [facility] 88487228753 12.5 MG TAKE ONE TABLET BY MOUTH TWICE DAILY Advair Diskus [facility] [address]-22 500-50 MCG/DOSE INHALE ONE PUFF BY MOUTH TWICE DAILY Naproxen [facility] [address]-51 500 MG TAKE ONE TABLET BY MOUTH TWICE DAILY Ranitidine HCl [facility] [address]-32 150 MG TAKE ONE TABLET BY MOUTH TWICE DAILY Metformin HCl [facility] [address]-07 1000 MG oral twice daily with morning and evening meals 1 tablet Procedures Procedure Coding System Code Date Office Visit, Est Pt., Level 4 CPT-4 30771 Jul 06, 2016 MEASURE BLOOD OXYGEN LEVEL [facility]-4 07609 Jul 06, 2016 Vital Signs Date/Time: Jul 06, 2016 Cardiac Monitoring Heart Rate 86 bpm Weight 257 lbs Height 70 in BMI 36.87 Index Oximetry 98 % Blood Pressure Diastolic 84 mmHg Blood Pressure Systolic 132 mmHg Results No Known Results Summary Purpose eClinicalWorks Submission
--- OUTSIDE RECORDS SUMMARY | 2017-08-03 15:22 | XMS REPORT ---
Author Author AGUEDA JIMENEZ Organization eClinicalWorks Address Unknown Phone Unavailable Care Team Providers Care Mri Manager Name Role Phone AGUEDA JIMENEZ CP Unavailable [...] Instructions Start Date End Date Status Dosage Hydrocodone-Acetaminophen [facility] [address]-94 7.5-325 MG Orally every 6 hrs Aug 08, 2015 Aug 13, 2015 1 tablet as needed Results No Known Results Summary Purpose eClinicalWorks Submission
--- OUTSIDE RECORDS SUMMARY | 2017-08-03 15:22 | XMS REPORT ---
Author Author AGUEDA JIMENEZ Organization eClinicalWorks Address Unknown Phone Unavailable Care Team Providers Care Clinical Biostatistics Director Name Role Phone AGUEDA JIMENEZ CP Unavailable Allergies No Known Allergies Problems Problem Type Condition Code Onset Dates Condition Status Problem Obstructive chronic bronchitis, with (acute) exacerbation 491.21 Active Problem Other specified disorder of skin 709.8 Active Problem Unspecified hereditary and idiopathic peripheral neuropathy 356.9 Active Problem Hypertension 401.9 Active Problem Hyperlipemia 272.4 Active Problem Type [...] 300.00 Active Problem Cervicalgia 723.1 Active Medications Medication Code System Code Instructions Start Date End Date Status Dosage Lisinopril [facility] [address]-14 20 MG TAKE ONE TABLET BY MOUTH DAILY Vytorin [facility] [address]-29 10-10 MG Orally Once a day April 14, 2015 1 tablet Isosorbide Mononitrate CR [facility] 46163514975 30 MG TAKE ONE TABLET BY MOUTH DAILY Albuterol Sulfate [facility] 82792134715 (2.5 MG/3ML) 0.083% USE ONE VIAL PER NEBULIZER EVERY 4 HOURS NEEDED FOR WHEEZING OR COUGH Carvedilol [facility] 92558451899 12.5 MG TAKE ONE TABLET BY MOUTH TWICE DAILY Results No Known Results Summary Purpose eClinicalWorks Submission
--- OUTSIDE RECORDS SUMMARY | 2017-08-03 15:22 | XMS REPORT ---
Author Author AGUEDA JIMENEZ Organization eClinicalWorks Address Unknown Phone Unavailable Care Team Providers Care Zipper Setter Lockstitch Name Role Phone AGUEDA JIMENEZ CP Unavailable [...] Start Date End Date Status Dosage Oxycodone-Acetaminophen [facility] [address]-40 7.5-325 MG Orally 3 times a day prn- must last 30 days June 12, 2015 1 tablet as needed Results No Known Results Summary Purpose eClinicalWorks Submission
--- OUTSIDE RECORDS SUMMARY | 2017-08-03 15:22 | XMS REPORT ---
Author Author AGUEDA JIMENEZ Organization eClinicalWorks Address Unknown Phone Unavailable Care Team Providers Care Silo Worker Name Role Phone AGUEDA JIMENEZ CP Unavailable Allergies No Known Allergies Problems Problem Type Condition Code Onset Dates Condition Status Problem Mixed hyperlipidemia E78.2 Active Problem Essential hypertension I10 Active Problem Acquired hypothyroidism E03.9 Active Problem COPD (chronic obstructive pulmonary disease) J44.9 Active Problem Hypertension I10 Active Problem Cellulitis of right lower leg L03.115 Active Problem Type 2 diabetes mellitus with diabetic neuropathy E11.40 Active Problem Neuropathy G62.9 Active Problem Hyperlipemia E78.5 Active Problem Diabetes mellitus type 2, uncontrolled E11.65 Active Problem Chronic pain G89.29 Active Problem Depression F32.9 Active Problem Sleep apnea G47.30 Active Problem CAD (coronary artery disease) I25.10 Active Medications No Known Medications Results No Known Results Summary Purpose eClinicalWorks Submission
--- OUTSIDE RECORDS SUMMARY | 2017-08-03 15:22 | XMS REPORT ---
Author Author AGUEDA JIMENEZ [facility] Address [address] [place] [address] Care Team Providers Care Environmental Designer Name Role Phone AGUEDA JIMENEZ Unavailable PROBLEMS Type Condition ICD9-CM Code [id number] Code Onset Dates Condition Status SNOMED Code Problem Hypertension I10 Active 32462437 Problem Claudication I73.9 Active 148304176 Problem COPD (chronic obstructive pulmonary disease) J44.9 Active 19666192 Problem Pulmonary nodules R91.8 Active 265005663 Problem Right kidney stone N20.0 Active 55084641 Problem Type 2 diabetes mellitus with diabetic polyneuropathy, without long- term current use of insulin E11.42 Active 37265475 Problem Type 2 diabetes mellitus with diabetic nephropathy, 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 Active 75281735 Problem Renal calculus, right N20.0 Active 05650863 Problem Ulcer of foot, right, limited to breakdown of skin L97.511 Active 02213101 Problem Mixed hyperlipidemia E78.2 Active 574343100 Problem Essential hypertension I10 Active 33098901 Problem CAD (coronary artery disease) I25.10 Active 06594400 Problem Depression F32.9 Active 91623298 Problem Acquired hypothyroidism E03.9 Active 265311999 Problem Sleep apnea G47.30 Active 78691012 Problem Neuropathy G62.9 Active 008859704 Problem Hyperlipemia E78.5 Active 29347136 ALLERGIES Unknown Allergies SOCIAL HISTORY No smoking Hx information available PLAN OF CARE VITAL SIGNS MEDICATIONS Medication Instructions Dosage Frequency Start Date End Date Duration Status Lasix 40 mg Orally Once a day 1 tablet 24h Nov, 10 days Active Potassium Chloride ER 20 MEQ Orally Once a day 1 tablet with food 24h Nov, 10 days Active RESULTS No Results PROCEDURES No Known procedures IMMUNIZATIONS No Known Immunizations
--- OUTSIDE RECORDS SUMMARY | 2017-08-03 15:22 | XMS REPORT ---
Author Author AGUEDA JIMENEZ [facility] Address [address] [place] [address] Care Team Providers Care Sales/Marketing Name Role Phone AGUEDA JIMENEZ Unavailable PROBLEMS Type Condition ICD9-CM Code [id number] Code Onset Dates Condition Status SNOMED Code Problem Hypertension I10 Active 27736027 Problem Claudication I73.9 Active 906448985 Problem COPD (chronic obstructive pulmonary disease) J44.9 Active 82049426 Problem Pulmonary nodules R91.8 Active 263400276 Problem Right kidney stone N20.0 Active 65207524 Problem Type 2 diabetes mellitus with diabetic polyneuropathy, without long- term current use of insulin E11.42 Active 42807999 Problem Type 2 diabetes mellitus with diabetic nephropathy, 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 Active 53285860 Problem Renal calculus, right N20.0 Active 66330276 Problem Ulcer of foot, right, limited to breakdown of skin L97.511 Active 57485804 Problem Mixed hyperlipidemia E78.2 Active 874003961 Problem Essential hypertension I10 Active 33867100 Problem CAD (coronary artery disease) I25.10 Active 27521774 Problem Depression F32.9 Active 37342911 Problem Acquired hypothyroidism E03.9 Active 415462790 Problem Sleep apnea G47.30 Active 34081697 Problem Neuropathy G62.9 Active 421977298 Problem Hyperlipemia E78.5 Active 55784104 ALLERGIES Unknown Allergies SOCIAL HISTORY No smoking Hx information available PLAN OF CARE VITAL SIGNS MEDICATIONS Medication Instructions Dosage Frequency Start Date End Date Duration Status Ketoconazole 2 % Externally Once a day 1 application to affected area 24h Nov, Nov, 14 days Active RESULTS No Results PROCEDURES No Known procedures IMMUNIZATIONS No Known Immunizations
--- OUTSIDE RECORDS SUMMARY | 2017-08-03 15:22 | XMS REPORT ---
Author Author AGUEDA JIMENEZ Organization [facility] Address [address] [place] [address] Care Team Providers Care Electrical Panel Builder Name Role Phone AGUEDA JIMENEZ Unavailable PROBLEMS Type Condition ICD9-CM Code GPR09-RN Code Onset Dates Condition Status SNOMED Code Problem Hypertension I10 Active 44945791 Problem Claudication I73.9 Active 550553801 Problem COPD (chronic obstructive pulmonary disease) J44.9 Active 31388420 Problem Pulmonary nodules R91.8 Active 800679105 Problem Right kidney stone N20.0 Active 11471493 Problem Type 2 diabetes mellitus with diabetic nephropathy, 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 Active 27117526 Problem Type 2 diabetes mellitus with diabetic polyneuropathy, without long- term current use of insulin E11.42 Active 96774870 Problem Renal calculus, right N20.0 Active 89182835 Problem Ulcer of foot, right, limited to breakdown of skin L97.511 Active 02437659 Problem Depression F32.9 Active 02252535 Problem Sleep apnea G47.30 Active 52772108 Problem Acquired hypothyroidism E03.9 Active 811827875 Problem Essential hypertension I10 Active 62665363 Problem CAD (coronary artery disease) I25.10 Active 77201205 Problem Neuropathy G62.9 Active 550739844 Problem Mixed hyperlipidemia E78.2 Active 086500755 Problem Hyperlipemia E78.5 Active 12393259 ALLERGIES Unknown Allergies SOCIAL HISTORY No smoking Hx information available PLAN OF CARE VITAL SIGNS MEDICATIONS Unknown Medications RESULTS Name Result Date Reference Range BUN BUN CREATININE, SERUM Creatinine, Serum eGFR If NonAfricn Am eGFR If Africn Am PROCEDURES Procedure Date Ordered Related Diagnosis Body Site LAB NOT BILLED BY [facility] Nov 24, 2016 IMMUNIZATIONS No Known Immunizations
--- OUTSIDE RECORDS SUMMARY | 2017-08-03 15:23 | XMS REPORT ---
Author Author AGEUDA JIMENEZ Organization eClinicalWorks Address Unknown Phone Unavailable Care Team Providers Care Fiber Drier Operator Name Role Phone AGUEDA JIMENEZ CP [...] J44.9 Active Problem Hypertension I10 Active Problem Sleep apnea G47.30 Active Problem CAD (coronary artery disease) I25.10 Active Problem Chronic pain G89.29 Active Problem Mixed hyperlipidemia E78.2 Active Problem Depression F32.9 Active Problem Acquired hypothyroidism E03.9 Active Medications Medication Code System Code Instructions Start Date End Date Status Dosage Vytorin [facility] [address]-78 10-10 MG Orally Once a day 1 tablet Carvedilol [facility] 27617780227 12.5 MG TAKE ONE TABLET BY MOUTH TWICE DAILY Levothyroxine Sodium [facility] [address]-24 25 MCG Orally Once a day 1 tablet Results No Known Results Summary Purpose eClinicalWorks Submission
--- OUTSIDE RECORDS SUMMARY | 2017-08-03 15:23 | XMS REPORT ---
Author Author AGUEDA JIMENEZ [facility] Address [address] [place] [address] Care Team Providers Care Deployment Manager Name Role Phone AGUEDA JIMENEZ Unavailable PROBLEMS Type Condition ICD9-CM Code [id number] Code Onset Dates Condition Status SNOMED Code Problem Hypertension I10 Active 96347177 Problem Claudication I73.9 Active 864058487 Problem COPD (chronic obstructive pulmonary disease) J44.9 Active 00672898 Problem Pulmonary nodules R91.8 Active 240142597 Problem Right kidney stone N20.0 Active 15691474 Problem Type 2 diabetes mellitus with diabetic polyneuropathy, without long- term current use of insulin E11.42 Active 85134791 Problem Type 2 diabetes mellitus with diabetic nephropathy, 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 Active 60118338 Problem Renal calculus, right N20.0 Active 88467144 Problem Ulcer of foot, right, limited to breakdown of skin L97.511 Active 36787133 Problem Mixed hyperlipidemia E78.2 Active 178804397 Problem Essential hypertension I10 Active 98950524 Problem CAD (coronary artery disease) I25.10 Active 53880800 Problem Depression F32.9 Active 14949910 Problem Acquired hypothyroidism E03.9 Active 737649705 Problem Sleep apnea G47.30 Active 84095743 Problem Neuropathy G62.9 Active 451021227 Problem Hyperlipemia E78.5 Active 13065560 ALLERGIES Substance Reaction Event Type Date Status SulfADIAZINE Unknown Drug Allergy Nov, Active SOCIAL HISTORY No smoking Hx information available PLAN OF CARE Activity Details Follow Up pending CT or diabetes 2 months Reason: VITAL SIGNS Height 70 in 2016-11-30 Weight 266.1 lbs 2016-11-30 Temperature 97.6 degrees Fahrenheit 2016-11-30 Heart Rate 94 bpm 2016-11-30 Respiratory Rate 20 2016-11-30 BMI 38.18 kg/m2 2016-11-30 Blood pressure systolic 138 mmHg 2016-11-30 Blood pressure diastolic 70 mmHg 2016-11-30 MEDICATIONS Medication Instructions Dosage Frequency Start Date End Date Duration Status Spiriva HandiHaler 18 MCG INHALE CONTENTS OF ONE CAPSULE BY MOUTH ONCE DAILY (TWO INHALATIONS PER ONE CAPSULE) Active Cyclobenzaprine HCl 10 MG TAKE ONE TABLET BY MOUTH THREE TIMES DAILY NEEDED 20 Active Rozerem 8 MG TAKE ONE TABLET BY MOUTH DAILY AT BEDTIME FOR SLEEP Active ProAir HFA 108 (90 Base) MCG/ACT INHALE TWO PUFFS BY MOUTH EVERY 4 TO 6 HOURS NEEDED Active Ranitidine HCl 150 MG TAKE ONE TABLET BY MOUTH TWICE DAILY 90 Active Levothyroxine Sodium 25 MCG Orally Once a day 1 tablet 24h Active Tramadol HCl 50 mg Orally 3 times a day prn 1 tablet as needed Nov, Nov, 10 days Active Naproxen 500 MG TAKE ONE TABLET BY MOUTH TWICE DAILY 90 Active Lyrica 75 MG Orally 3 times a day 1 capsule 8h Active Metformin HCl 1000 MG oral twice daily with morning and evening meals 1 tablet Active Isosorbide Mononitrate CR 30 MG TAKE ONE TABLET BY MOUTH DAILY Active BusPIRone HCl 10 MG TAKE ONE TABLET BY MOUTH TWICE DAILY Active Plavix 75 MG TAKE ONE TABLET BY MOUTH DAILY 30 Active Vytorin 10-10 MG Orally Once a day 1 tablet 24h Active Brintellix 10 MG TAKE ONE TABLET BY MOUTH DAILY AT THE SAME TIME EACH DAY 30 Active Advair Diskus 500-50 MCG/DOSE INHALE ONE PUFF BY MOUTH TWICE DAILY Active Albuterol Sulfate (2.5 MG/3ML) 0.083% USE ONE VIAL PER NEBULIZER EVERY 4 HOURS NEEDED FOR WHEEZING OR COUGH 9 Active Carvedilol 12.5 MG TAKE ONE TABLET BY MOUTH TWICE DAILY Active Trintellix 10 MG TAKE ONE TABLET BY MOUTH ONCE DAILY AT THE SAME TIME EACH DAY 30 Active Clopidogrel Bisulfate 75 MG TAKE ONE TABLET BY MOUTH ONCE DAILY 30 Active Lisinopril 20 mg Orally Once a day 1 tablet 24h Active RESULTS Name Result Date Reference Range UA LONG DIP (IN HOUSE) 2016-11-30 Lot # [id number] Exp date 09/2017 Clarity Clear Color Yellow Odor None GLU Negative NEMESIO Negative KET Negative SG 1.020 BLO Negative pH 7.0 Protein Negative URO 1.0 NIT Negative SHREYA Negative Lot # Exp date PROCEDURES Procedure Date Ordered Related Diagnosis Body Site URINALYSIS, AUTO, W/O SCOPE Nov 30, 2016 Office Visit, Est Pt., Level 4 Nov 30, 2016 THER/PROPH/DIAG INJ, SC/IM Nov 30, 2016 TORADOL (IM) 60 MG/2ML (UP TO 15 MG) Nov 30, 2016 IMMUNIZATIONS Vaccine Route Administration Date Status TORADOL (IM) 60 MG/2ML (UP TO 15 MG) IM Intramuscular Nov 30, 2016 Administered
--- OUTSIDE RECORDS SUMMARY | 2017-08-03 15:23 | XMS REPORT ---
Author Author AGUEDA JIMENEZ [facility] eClinicalWorks Address Unknown Phone Unavailable Care Team Providers Care Television Technician Name Role Phone AGUEDA JIMENEZ Unavailable Allergies, Adverse Reactions, Alerts Substance Reaction Event Type SulfADIAZINE Info Not Available Drug Allergy Problems Problem Type Condition Code Onset Dates Condition Status Assessment Pain in right lower leg M79.661 Active Problem Sleep apnea G47.30 Active Assessment Cellulitis of right lower leg L03.115 Active Problem CAD (coronary artery disease) I25.10 Active Assessment COPD (chronic obstructive pulmonary disease) J44.9 Active Problem Mixed hyperlipidemia E78.2 Active Problem Essential hypertension I10 Active Problem Acquired hypothyroidism E03.9 Active Problem COPD (chronic obstructive pulmonary disease) J44.9 Active Problem Hypertension I10 Active Assessment Sleep apnea G47.30 Active Assessment Depression F32.9 Active Problem Cellulitis of right lower leg L03.115 Active Assessment Chronic pain G89.29 Active Problem Type 2 diabetes mellitus with diabetic neuropathy E11.40 Active Problem Neuropathy G62.9 Active Problem Hyperlipemia E78.5 Active Problem Diabetes mellitus type 2, uncontrolled E11.65 Active Assessment Acquired hypothyroidism E03.9 Active Assessment Essential hypertension I10 Active Assessment CAD (coronary artery disease) I25.10 Active Assessment Mixed hyperlipidemia E78.2 Active Problem Chronic pain G89.29 Active Problem Depression F32.9 Active Assessment Neuropathy G62.9 Active Assessment Type 2 diabetes mellitus with diabetic neuropathy E11.40 Active Medications Medication Code System Code Instructions Start Date End Date Status Dosage Ranitidine HCl [facility] 90364733434 150 MG TAKE ONE TABLET BY MOUTH TWICE DAILY Metformin HCl [facility] [address]-82 1000 MG oral twice daily with morning and evening meals 1 tablet Lyrica [facility] [address]-63 75 MG Orally 3 times a day 1 capsule Keflex [facility] [address]-60 500 MG Orally 4 times a day June 01, 2016May 1 capsule Spiriva HandiHaler [facility] [address]-47 18 MCG INHALE CONTENTS OF ONE CAPSULE BY MOUTH ONCE DAILY (TWO INHALATIONS PER ONE CAPSULE) Rozerem [facility] [address]-72 8 MG TAKE ONE TABLET BY MOUTH DAILY AT BEDTIME FOR SLEEP Albuterol Sulfate [facility] 88067285155 (2.5 MG/3ML) 0.083% USE ONE VIAL PER NEBULIZER EVERY 4 HOURS NEEDED FOR WHEEZING OR COUGH Clopidogrel Bisulfate [facility] [address]-87 75 MG TAKE ONE TABLET BY MOUTH ONCE DAILY Lisinopril [facility] [address]-03 20 mg Orally Once a day 1 tablet Plavix [facility] 92111439059 75 MG TAKE ONE TABLET BY MOUTH DAILY Levothyroxine Sodium [facility] [address]-14 25 MCG Orally Once a day 1 tablet Brintellix [facility] 03786791202 10 MG TAKE ONE TABLET BY MOUTH DAILY AT THE SAME TIME EACH DAY BusPIRone HCl [facility] [address]-25 10 MG TAKE ONE TABLET BY MOUTH TWICE DAILY Cyclobenzaprine HCl [facility] [address]-69 10 MG TAKE ONE TABLET BY MOUTH THREE TIMES DAILY NEEDED Isosorbide Mononitrate CR [facility] 02070233337 30 MG TAKE ONE TABLET BY MOUTH DAILY Vytorin [facility] [address]-91 10-10 MG Orally Once a day 1 tablet Carvedilol [facility] 88306423024 12.5 MG TAKE ONE TABLET BY MOUTH TWICE DAILY ProAir HFA [facility] [address]-93 108 (90 Base) MCG/ACT INHALE TWO PUFFS BY MOUTH EVERY 4 TO 6 HOURS NEEDED Naproxen [facility] [address]-39 500 MG TAKE ONE TABLET BY MOUTH TWICE DAILY Zaroxolyn [facility] 0 5 mg Orally every 24 hrs June 01, 2016 1 tablet Spiriva HandiHaler [facility] 77360155295 18 MCG INHALE CONTENTS OF ONE CAPSULE BY MOUTH ONCE DAILY (TWO INHALATIONS PER ONE CAPSULE) Potassium Chloride [facility] [address]-12 10 MEQ Orally Once a day June 01, 2016 June 15, 2016 1 capsule with fluid pill Advair Diskus [facility] [address]-97 500-50 MCG/DOSE INHALE ONE PUFF BY MOUTH TWICE DAILY Procedures Procedure Coding System Code Date LAB NOT BILLED BY [facility] CPT-4 NOBLL June 01, 2016 VENIPUNCT, ROUTINE* CPT-4 59537 June 01, 2016 GLYCATED HEMOGLOBIN TEST CPT-4 13600 June 01, 2016 Office Visit, Est Pt., Level 5 CPT-4 44079 June 01, 2016 Vital Signs Date/Time: June 01, 2016 Cardiac Monitoring Heart Rate 78 bpm Weight 247.0 lbs Height 70 in Blood Pressure Diastolic 78 mmHg Blood Pressure Systolic 136 mmHg Results No Known Results Summary Purpose eClinicalWorks Submission
--- OUTSIDE RECORDS SUMMARY | 2017-08-03 15:23 | XMS REPORT ---
Author Author AGUEDA JIMENEZ Organization eClinicalWorks Address Unknown Phone Unavailable Care Team Providers Care Rivet Machine Operator Name Role Phone AGUEDA JIMENEZ CP [...] Start Date End Date Status Dosage Oxycodone-Acetaminophen [facility] [address]-45 7.5-325 MG Orally 3 times a day- must last 30 days June 12, 2015 1 tablet as needed Results No Known Results Summary Purpose eClinicalWorks Submission
--- OUTSIDE RECORDS SUMMARY | 2017-08-03 15:24 | XMS REPORT ---
Author Author LILO MIDDLETON [facility] eClinicalWorks Address Unknown Phone Unavailable Care Team Providers Care Developer Programmer Name Role Phone LILO MIDDLETON CP Unavailable Allergies, Adverse Reactions, Alerts Substance Reaction Event Type SulfADIAZINE Info Not Available Drug Allergy Sudafed Info Not Available Drug Allergy Seroquel Info Not Available Drug Allergy Problems Problem Type Condition ICD-9 Code Onset Dates Condition Status Assessment Chronic dental pain 525.9 Active Assessment Sinusitis 473.9 Active Problem Nondependent tobacco use disorder 305.1 [...] Instructions Start Date End Date Status Dosage Augmentin [facility] [address]-97 875-125 MG Orally every 12 hrs Aug 08, 2015 Aug 18, 2015 1 tablet PredniSONE [facility] [address]-09 20 MG Orally tid x 3 days, bid x 3 days and daily x 3. Aug 08, 2015 Aug 18, 2015 1 tablet with food or milk Hydrocodone-Acetaminophen [facility] [address]-77 7.5-325 MG Orally every 6 hrs Aug 08, 2015 Aug 13, 2015 1 tablet as needed Lisinopril [facility] 99152893049 20 MG TAKE ONE TABLET BY MOUTH DAILY Vytorin [facility] [address]-52 10-10 MG Orally Once a day April 14, 2015 1 tablet Naprosyn [facility] [address]-44 500 MG Orally every 12 hrs 1 tablet as needed Naproxen [facility] 31540516200 500 MG TAKE ONE TABLET BY MOUTH TWICE DAILY Oxycodone-Acetaminophen [facility] [address]-20 7.5-325 MG Orally 3 times a day- must last 30 days June 12, 2015 1 tablet as needed Metformin HCl [facility] [address]-54 1000 MG TAKE ONE TABLET BY MOUTH TWICE DAILY WITH MORNING AND EVENING MEALS Lyrica [facility] 41868093950 75 MG TAKE ONE CAPSULE BY MOUTH THREE TIMES DAILY FOR FIBROMYALGIA OR IDIOPATHIC NEUROPATHY Cyclobenzaprine HCl [facility] 45256088386 10 MG TAKE ONE TABLET BY MOUTH THREE TIMES DAILY NEEDED Levothyroxine Sodium [facility] [address]-61 25 MCG Orally Once a day 1 tablet Brintellix [facility] 64240556111 10 MG TAKE ONE TABLET BY MOUTH DAILY AT THE SAME TIME EACH DAY Advair Diskus [facility] 93019270803 500-50 MCG/DOSE INHALE ONE PUFF BY MOUTH TWICE DAILY Rozerem [facility] [address]-47 8 MG at hs prn for sleep TAKE ONE TABLET BY MOUTH DAILY Albuterol Sulfate [facility] 11425523408 (2.5 MG/3ML) 0.083% USE ONE VIAL PER NEBULIZER EVERY 4 HOURS NEEDED FOR WHEEZING OR COUGH Spiriva HandiHaler [facility] 97181149629 18 MCG INHALE CONTENTS OF ONE CAPSULE BY MOUTH ONCE DAILY (TWO INHALATIONS PER ONE CAPSULE) Plavix [facility] 51885173780 75 MG TAKE ONE TABLET BY MOUTH DAILY Ranitidine HCl [facility] 09419231228 150 MG TAKE ONE TABLET BY MOUTH TWICE DAILY ProAir HFA [facility] 85863400488 108 (90 Base) MCG/ACT INHALE TWO PUFFS BY MOUTH EVERY 4 TO 6 HOURS NEEDED BusPIRone HCl [facility] 03751995458 10 MG TAKE ONE TABLET BY MOUTH TWICE DAILY Procedures Procedure Coding System Code Date Office Visit, Est Pt., Level 3 CPT-4 41592 Aug 08, 2015 Vital Signs Date/Time: Aug 08, 2015 Temperature 97.5 F Weight 270.4 lbs Height 70 in BMI 38.79 Index Blood Pressure Diastolic 82 mmHg Blood Pressure Systolic 122 mmHg Cardiac Monitoring Heart Rate 80 bpm Results No Known Results Summary Purpose eClinicalWorks Submission
--- OUTSIDE RECORDS SUMMARY | 2017-08-03 15:24 | XMS REPORT ---
Author Author AGUEDA JIMENEZ [facility] Address [address] [place] [address] Care Team Providers Care Roll Edge Stitcher Hand Name Role Phone AGUEDA JIMENEZ Unavailable PROBLEMS Type Condition ICD9-CM Code [id number] Code Onset Dates Condition Status SNOMED Code Problem Hypertension I10 Active 74618980 Problem Claudication I73.9 Active 925748780 Problem COPD (chronic obstructive pulmonary disease) J44.9 Active 65088207 Problem Pulmonary nodules R91.8 Active 327782381 Problem Right kidney stone N20.0 Active 01526342 Problem Type 2 diabetes mellitus with diabetic polyneuropathy, without long- term current use of insulin E11.42 Active 96619024 Problem Type 2 diabetes mellitus with diabetic nephropathy, 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 Active 67761287 Problem Renal calculus, right N20.0 Active 92380058 Problem Ulcer of foot, right, limited to breakdown of skin L97.511 Active 73232312 Problem Mixed hyperlipidemia E78.2 Active 717781032 Problem Essential hypertension I10 Active 51352025 Problem CAD (coronary artery disease) I25.10 Active 38848032 Problem Depression F32.9 Active 55173866 Problem Acquired hypothyroidism E03.9 Active 519824352 Problem Sleep apnea G47.30 Active 02386237 Problem Neuropathy G62.9 Active 303984330 Problem Hyperlipemia E78.5 Active 89306989 ALLERGIES Unknown Allergies SOCIAL HISTORY No smoking Hx information available PLAN OF CARE VITAL SIGNS MEDICATIONS Unknown Medications RESULTS Name Result Date Reference Range CT Scan : Chest w/ Contrast 2016-12-02 PROCEDURES No Known procedures IMMUNIZATIONS No Known Immunizations
--- OUTSIDE RECORDS SUMMARY | 2017-08-03 15:24 | XMS REPORT ---
Author Author AGUEDA JIMENEZ Organization eClinicalWorks Address Unknown Phone Unavailable Care Team Providers Care Pressroom Foreman Name Role Phone AGUEDA JIMENEZ CP Unavailable [...] Start Date End Date Status Dosage Vytorin [facility] [address]-25 10-10 MG Orally Once a day 1 tablet Results No Known Results Summary Purpose eClinicalWorks Submission
--- OUTSIDE RECORDS SUMMARY | 2017-08-03 15:24 | XMS REPORT ---
Author Author AGUEDA JIMENEZ [facility] eClinicalWorks Address Unknown Phone Unavailable Care Team Providers Care Correctional Lieutenant Name Role Phone AGUEDA JIMENEZ CP Unavailable [...] Instructions Start Date End Date Status Dosage Advair Diskus [facility] 44813329435 500-50 MCG/DOSE INHALE ONE PUFF BY MOUTH TWICE DAILY Cyclobenzaprine HCl [facility] 77320826790 10 MG TAKE ONE TABLET BY MOUTH THREE TIMES DAILY NEEDED Triamcinolone Acetonide [facility] [address]-42 0.1 % Externally Three times a day prn Aug 15, 2015 1 application to affected area Oxycodone-Acetaminophen [facility] [address]-95 7.5-325 MG Orally 3 times a day- must last 30 days June 12, 2015 1 tablet as needed Ranitidine HCl [facility] 60933952007 150 MG TAKE ONE TABLET BY MOUTH TWICE DAILY Naproxen [facility] 38004537420 500 MG TAKE ONE TABLET BY MOUTH TWICE DAILY BusPIRone HCl [facility] 71763883831 10 MG TAKE ONE TABLET BY MOUTH TWICE DAILY Rozerem [facility] [address]-97 8 MG at hs prn for sleep TAKE ONE TABLET BY MOUTH DAILY Levothyroxine Sodium [facility] [address]-12 25 MCG Orally Once a day 1 tablet Brintellix [facility] 87488866191 10 MG TAKE ONE TABLET BY MOUTH DAILY AT THE SAME TIME EACH DAY Spiriva HandiHaler [facility] 56679414163 18 MCG INHALE CONTENTS OF ONE CAPSULE BY MOUTH ONCE DAILY (TWO INHALATIONS PER ONE CAPSULE) Plavix [facility] 05692840830 75 MG TAKE ONE TABLET BY MOUTH DAILY Results No Known Results Summary Purpose eClinicalWorks Submission
--- OUTSIDE RECORDS SUMMARY | 2017-08-03 15:24 | XMS REPORT ---
Author Author AGUEDA JIMENEZ [facility] Address [address] [place] [address] Care Team Providers Care Sustainable Systems Analyst Name Role Phone AGUEDA JIMENEZ Unavailable PROBLEMS Type Condition ICD9-CM Code NSF87-KA Code Onset Dates Condition Status SNOMED Code Problem Hypertension I10 Active 12451875 Problem Claudication I73.9 Active 000389100 Problem COPD (chronic obstructive pulmonary disease) J44.9 Active 46828414 Problem Pulmonary nodules R91.8 Active 318817266 Problem Right kidney stone N20.0 Active 58942194 Problem Type 2 diabetes mellitus with diabetic nephropathy, 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 Active 99735963 Problem Type 2 diabetes mellitus with diabetic polyneuropathy, without long- term current use of insulin E11.42 Active 50529474 Problem Renal calculus, right N20.0 Active 80859890 Problem Ulcer of foot, right, limited to breakdown of skin L97.511 Active 55299152 Problem Depression F32.9 Active 59841359 Problem Sleep apnea G47.30 Active 95738931 Problem Acquired hypothyroidism E03.9 Active 967357068 Problem Essential hypertension I10 Active 22009820 Problem CAD (coronary artery disease) I25.10 Active 57584668 Problem Neuropathy G62.9 Active 715503306 Problem Mixed hyperlipidemia E78.2 Active 783576674 Problem Hyperlipemia E78.5 Active 25519718 ALLERGIES Unknown Allergies SOCIAL HISTORY No smoking Hx information available PLAN OF CARE VITAL SIGNS MEDICATIONS Unknown Medications RESULTS No Results PROCEDURES No Known procedures IMMUNIZATIONS No Known Immunizations
--- OUTSIDE RECORDS SUMMARY | 2017-08-03 15:24 | XMS REPORT ---
Author Author AGUEDA JIMENEZ Organization eClinicalWorks Address Unknown Phone Unavailable Care Team Providers Care Manager Medicare Name Role Phone AGUEDA JIMENEZ CP Unavailable [...]
--- OUTSIDE RECORDS SUMMARY | 2017-08-03 15:24 | XMS REPORT ---
Author Author AGUEDA JIMENEZ Organization eClinicalWorks Address Unknown Phone Unavailable Care Team Providers Care Second Steward Name Role Phone AGUEDA JIMENEZ CP Unavailable [...] Start Date End Date Status Dosage Oxycodone-Acetaminophen [facility] [address]-40 7.5-325 MG Orally 3 times a day prn- must last 4 weeks June 12, 2015 1 tablet as needed Results No Known Results Summary Purpose eClinicalWorks Submission
[2017-08-03] MEDS ORDERED: IBUPROFEN 600 MG (MOTRIN) TAB PO PRN (15:45)
[2017-08-03] MEDS ORDERED: ACETAMINOPHEN 500 MG TAB (TYLENOL) PO PRN (15:45)
[2017-08-03] MEDS ORDERED: DOCUSATE SODIUM 100 MG (COLACE) CAP PO PRN (15:45)
[2017-08-03 16:00] VITALS: BP 128/77
[2017-08-03] MEDS ORDERED: CATHETER FLUSH 10 ML SYR IV PRN (16:30)
[2017-08-03 16:53] LABS: BASOPHILS # (AUTO) 0.1 10^3/uL (0.0-0.1); BASOPHILS % (AUTO) 0 % (0-10); EOSINOPHILS # (AUTO) 0.3 10^3/uL (0.0-0.3); EOSINOPHILS % (AUTO) 2 % (0-10); LYMPHOCYTES # (AUTO) 2.6 X 10^3 (1.0-4.0); LYMPHOCYTES % (AUTO) 17 % (12-44); MEAN CORPUSCULAR HEMOGLOBIN 29 PG (25-34); MEAN CORPUSCULAR HGB CONC 33 G/DL (32-36); MEAN CORPUSCULAR VOLUME 87 FL (80-99); MONOCYTES # (AUTO) 1.6 X 10^3 (0.0-1.0); MONOCYTES % (AUTO) 10 % (0-12); NEUTROPHILS # (AUTO) 11.4 X 10^3 (1.8-7.8); NEUTROPHILS % (AUTO) 72 % (42-75); PLATELET COUNT 241 10^3/uL (130-400); RED BLOOD COUNT 5.55 10^6/uL (4.35-5.85); RED CELL DISTRIBUTION WIDTH 13.9 % (10.0-14.5); WHITE BLOOD COUNT 15.9 10^3/uL (4.3-11.0)
[2017-08-03 17:20] LABS: ALANINE AMINOTRANSFERASE 23 U/L (0-55); ALBUMIN 3.9 GM/DL (3.2-4.5); ANION GAP 10 MMOL/L (5-14); ASPARTATE AMINO TRANSFERASE 17 U/L (5-34); BILIRUBIN,TOTAL 0.7 MG/DL (0.1-1.0); BLOOD UREA NITROGEN 17 MG/DL (7-18); BUN/CREATININE RATIO 22; CARBON DIOXIDE 29 MMOL/L (21-32); CHLORIDE 101 MMOL/L (98-107); CREATININE SERUM 0.77 MG/DL (0.60-1.30); GFR ESTIMATED > 60; GLUCOSE 128 MG/DL (70-105); POTASSIUM 4.5 MMOL/L (3.6-5.0); SODIUM 140 MMOL/L (135-145); TOTAL PROTEIN 8.5 GM/DL (6.4-8.2); hs C REACTIVE PROTEIN 17.79 MG/DL (0.00-0.50)
[2017-08-03] MEDS: ceFAZolin INJECTION 1,000 MG in NS (IVPB) 50 ML IV SCH ×2 (17:32→23:17)
[2017-08-03] MEDS: morphine INJ 10 MG/ML 1ML (SYR OR VIAL) IVP PRN ×2 (17:33→21:42)
[2017-08-03 17:37] LABS: BAND NEUTROPHILS 10 %; BASOPHILS % (MANUAL) 1 %; EOSINOPHILS % (MANUAL) 2 %; LYMPHOCYTES % (MANUAL) 13 %; NEUTROPHILS % (MANUAL) 68 %
[2017-08-03] MEDS: ENOXAPARIN 40 MG/0.4 ML (LOVENOX) SYR SC SCH (17:42)
[2017-08-03] MEDS: KETOROLAC 30 MG/ML VIAL IVP PRN (19:31)
[2017-08-03] MEDS: CATHETER FLUSH 10 ML SYR IV SCH (19:32)
[2017-08-03 20:00] VITALS: BP 124/64
[2017-08-03 23:40] VITALS: BP 121/70
[2017-08-04] MEDS: morphine INJ 10 MG/ML 1ML (SYR OR VIAL) IVP PRN ×3 (01:40→10:04)
[2017-08-04 04:30] VITALS: BP 121/71
[2017-08-04] MEDS: CATHETER FLUSH 10 ML SYR IV SCH ×3 (06:00→23:26)
[2017-08-04 07:13] LABS: MEAN PLATELET VOLUME 10.7 FL (7.4-10.4); RED BLOOD COUNT 4.72 10^6/uL (4.35-5.85); WHITE BLOOD COUNT 14.7 10^3/uL (4.3-11.0)
[2017-08-04 07:39] LABS: ANION GAP 10 MMOL/L (5-14); BLOOD UREA NITROGEN 15 MG/DL (7-18); BUN/CREATININE RATIO 21; CALCIUM 8.9 MG/DL (8.5-10.1); CARBON DIOXIDE 24 MMOL/L (21-32); CHLORIDE 103 MMOL/L (98-107); CREATININE SERUM 0.72 MG/DL (0.60-1.30); GFR ESTIMATED > 60; GLUCOSE 160 MG/DL (70-105); POTASSIUM 4.6 MMOL/L (3.6-5.0); SODIUM 137 MMOL/L (135-145)
[2017-08-04 08:14] VITALS: BP 118/69
[2017-08-04] MEDS ORDERED: CLIN300C3 PO (08:17)
[2017-08-04] MEDS ORDERED: NAPR220T66 PO (08:34)
[2017-08-04] MEDS ORDERED: NITR0.4T39 SL (08:38)
[2017-08-04] MEDS: ceFAZolin INJECTION 1,000 MG in NS (IVPB) 50 ML IV SCH ×3 (09:07→23:26)
[2017-08-04 12:00] VITALS: BP 136/78
[2017-08-04] MEDS: fentaNYL INJECTION 100 MCG/2 ML AMP IVP PRN ×3 (14:47→23:51)
--- NOTE | 2017-08-04 14:59 | Wound Care Progress Note ---
Subjective Subjective Subjective/Events-last exam 56 year old male with chronic BLE venous insufficiency and acute pain and swelling R leg. Had negative DVT screen on 08/04/17. The leg has worsened since then; therefore will repeat study prior to BLE arterial evaluation. No open wound at this time to be dressed. Elevation ordered and encouraged. Currently on IV antibiotics for cellulitis. PMH: CAD, COPD, DVT. SH, FH: Smoker. Review of Systems Date Seen by Provider: Aug 04, 2017 Time Seen by Provider: 14:59 General: No Chills Pulmonary: No Dyspnea Cardiovascular: No: Chest Pain Musculoskeletal: leg pain Objective Exam Last Set of Vital Signs Vital Signs Date Time Temp Pulse Resp B/P (MAP) Pulse Ox O2 Delivery O2 Flow Rate FiO2 08/04/17 08:14 97.1 84 20 118/69 95 Room Air Capillary Refill : I&O Intake and Output 08/05/17 00:00 Intake Total 475 ml Output Total 350 ml Balance 125 ml Intake Oral 375 ml IV Total 100 ml Output Urine Total 350 ml General: Alert, No Acute Distress Lungs: Normal Air Movement Skin: Other (Massive, tense edema, limited to RLE, with associated direct tenderness.) Results Lab Laboratory Tests 08/03/17 16:30: White Blood Count 15.9H, Red Blood Count 5.55, Hemoglobin 15.8, Hematocrit 48, Mean Corpuscular Volume 87, Mean Corpuscular Hemoglobin 29, Mean Corpuscular Hemoglobin Concent 33, Red Cell Distribution Width 13.9, Platelet Count 241, Mean Platelet Volume 11.0H, Neutrophils (%) (Auto) 72, Lymphocytes (%) (Auto) 17 , Monocytes (%) (Auto) 10, Eosinophils (%) (Auto) 2, Basophils (%) (Auto) 0, Neutrophils # (Auto) 11.4H, Lymphocytes # (Auto) 2.6, Monocytes # (Auto) 1.6H, Eosinophils # (Auto) 0.3, Basophils # (Auto) 0.1, Neutrophils % (Manual) 68, Lymphocytes % (Manual) 13, Monocytes % (Manual) 6, Eosinophils % (Manual) 2, Basophils % (Manual) 1, Band Neutrophils 10, Blood Morphology Comment NORMAL, Sodium Level 140, Potassium Level 4.5, Chloride Level 101, Carbon Dioxide Level 29, Anion Gap 10, Blood Urea Nitrogen 17, Creatinine 0.77, Estimat Glomerular Filtration Rate > 60, BUN/Creatinine Ratio 22, Glucose Level 128H, Lactic Acid Level 0.89, Calcium Level 10.0, Total Bilirubin 0.7, Aspartate Amino Transf (AST /SGOT) 17, Alanine Aminotransferase (ALT/SGPT) 23, Alkaline Phosphatase 75, C- Reactive Protein High Sensitivity 17.79H, Total Protein 8.5H, Albumin 3.9 08/04/17 06:46: White Blood Count 14.7H, Red Blood Count 4.72, Hemoglobin 13.5, Hematocrit 41, Mean Corpuscular Volume 88, Mean Corpuscular Hemoglobin 29, Mean Corpuscular Hemoglobin Concent 33, Red Cell Distribution Width 14.0, Platelet Count 233, Mean Platelet Volume 10.7H, Sodium Level 137, Potassium Level 4.6, Chloride Level 103, Carbon Dioxide Level 24, Anion Gap 10, Blood Urea Nitrogen 15, Creatinine 0.72, Estimat Glomerular Filtration Rate > 60, BUN/Creatinine Ratio 21, Glucose Level 160H, Calcium Level 8.9 Assessment/Plan Assessment/Plan Assessment/Plan 1. Cellulitis, R calf. 2. Unilateral 4+ edema and tenderness. 3. Peripheral arterial disease. 4. Venous insufficiency BLE with dermatitis. Plan: Elevation, venous screening, arterial evaluation. antibiotics per attending. SEB CHANEY MD Aug 04, 2017 14:59
[2017-08-04 16:00] VITALS: BP 124/78
[2017-08-04] MEDS: ENOXAPARIN 40 MG/0.4 ML (LOVENOX) SYR SC SCH (17:00)
--- NOTE | 2017-08-04 17:27 | Diagnostic Imaging Report ---
PROCEDURE: US right lower extremity venous. TECHNIQUE: Multiple real-time grayscale images were obtained over the right lower extremity in various projections. Additional duplex Doppler and color Doppler images were also obtained. INDICATION: Right lower extremity edema and pain. EXAMINATION: Grayscale and color Doppler evaluation of the deep veins of the right lower extremity were performed with waveform analysis. FINDINGS: Continuous venous flow is present. No intraluminal filling defect is identified. There is normal compressibility and response to augmentation. No abnormal perivascular fluid collection is identified. IMPRESSION: 1. No ultrasound evidence of right lower extremity deep venous thrombosis. 2. Incidental note is made of monophasic arterial flow in the right dorsalis pedis artery. Dictated by: Dictated on workstation # [id number]
[2017-08-04] MEDS ORDERED: RT-ALBUTEROL HFA (VENTOLIN) PER PUFF IH PRN (19:30)
[2017-08-04] MEDS ORDERED: TIOTROPIUM BROMIDE (SPIRIVA) 5'S INHALER IH PRN (19:30)
[2017-08-04 20:00] VITALS: BP 145/71
[2017-08-04] MEDS ORDERED: RT-ALBUTEROL SULF 2.5 MG/3 ML PRE-MIX VIAL IH PRN (20:15)
[2017-08-04] MEDS: oxyCODONE/APAP 5/325MG (PERCOCET 5) TABLET PO PRN (20:19)
[2017-08-04 22:07] LABS: BILIRUBIN,URINE NEGATIVE (NEGATIVE); KETONES,URINE NEGATIVE (NEGATIVE); LEUKOCYTE ESTERASE ,URINE NEGATIVE (NEGATIVE); NITRITE,URINE NEGATIVE (NEGATIVE); PH,URINE 7 (5-9); PROTEIN,URINE NEGATIVE (NEGATIVE); UROBILINOGEN,URINE NORMAL (NORMAL)
[2017-08-04 22:18] LABS: WBC,URINE RARE /HPF
[2017-08-05] VITALS: BP 119/76
[2017-08-05 04:00] VITALS: BP 134/81
[2017-08-05] MEDS: CATHETER FLUSH 10 ML SYR IV SCH ×3 (06:15→21:04)
[2017-08-05 07:09] LABS: MEAN PLATELET VOLUME 11.1 FL (7.4-10.4); RED BLOOD COUNT 4.99 10^6/uL (4.35-5.85); RED CELL DISTRIBUTION WIDTH 13.5 % (10.0-14.5); WHITE BLOOD COUNT 12.7 10^3/uL (4.3-11.0)
[2017-08-05 07:27] LABS: ANION GAP 8 MMOL/L (5-14); BLOOD UREA NITROGEN 14 MG/DL (7-18); BUN/CREATININE RATIO 19; CALCIUM 9.1 MG/DL (8.5-10.1); CARBON DIOXIDE 28 MMOL/L (21-32); CHLORIDE 101 MMOL/L (98-107); CREATININE SERUM 0.75 MG/DL (0.60-1.30); GFR ESTIMATED > 60; GLUCOSE 131 MG/DL (70-105); POTASSIUM 4.3 MMOL/L (3.6-5.0); SODIUM 137 MMOL/L (135-145)
[2017-08-05] MEDS: UMECLIDINIUM BROMIDE (INCRUSE ELLIPTA) 7'S IH SCH ×2 (07:52→11:30)
[2017-08-05 08:05] VITALS: BP 120/67
[2017-08-05] MEDS: ceFAZolin INJECTION 1,000 MG in NS (IVPB) 50 ML IV SCH ×3 (08:08→23:33)
[2017-08-05] MEDS: oxyCODONE/APAP 5/325MG (PERCOCET 5) TABLET PO PRN ×3 (08:09→23:33)
[2017-08-05] MEDS: fentaNYL INJECTION 100 MCG/2 ML AMP IVP PRN ×2 (08:50→21:02)
[2017-08-05 12:00] VITALS: BP 134/89
--- NOTE | 2017-08-05 14:09 | Progress Note (SOAP) ---
Subjective Subjective/Events-last exam Febrile to Tmax 100.5 at 2000 last night. States he feels about the same, still having a lot of pain. Refused TBI because it would hurt too much. Review of Systems Date Seen by Provider: Aug 05, 2017 Time Seen by Provider: 08:16 Objective Exam Last Set of Vital Signs Vital Signs Date Time Temp Pulse Resp B/P (MAP) Pulse Ox O2 Delivery O2 Flow Rate FiO2 08/05/17 12:00 98.6 68 18 134/89 96 Room Air Capillary Refill : Less Than 3 Seconds I&O Intake and Output 08/06/17 00:00 Intake Total 290 ml Output Total 1800 ml Balance -1510 ml Intake Oral 240 ml IV Total 50 ml Output Urine Total 1800 ml General: Alert, No Acute Distress Lungs: Clear to Auscultation, Normal Air Movement Heart: Regular Rate, No Murmurs Extremities: Other (Right lower leg swollen and erythematous, some skin wrinkling apparent suggesting improvement, 2+ pedal pulse, warm toes) Neuro: Normal Speech Psych/Mental Status: Mood NL Results/Procedures Lab Laboratory Tests 08/04/17 21:20: Urine Color YELLOW, Urine Clarity CLEAR, Urine pH 7, Urine Specific [place] 1.010L, Urine Protein NEGATIVE, Urine Glucose (UA) NEGATIVE, Urine Ketones NEGATIVE, Urine Nitrite NEGATIVE, Urine Bilirubin NEGATIVE, Urine Urobilinogen NORMAL, Urine Leukocyte Esterase NEGATIVE, Urine RBC (Auto) NEGATIVE, Urine RBC NONE, Urine WBC RARE, Urine Crystals NONE, Urine Bacteria NEGATIVE, Urine Casts NONE, Urine Mucus NEGATIVE, Urine Culture Indicated NO 08/05/17 05:57: White Blood Count 12.7H, Red Blood Count 4.99, Hemoglobin 14.2, Hematocrit 43, Mean Corpuscular Volume 87, Mean Corpuscular Hemoglobin 29, Mean Corpuscular Hemoglobin Concent 33, Red Cell Distribution Width 13.5, Platelet Count 255, Mean Platelet Volume 11.1H, Sodium Level 137, Potassium Level 4.3, Chloride Level 101, Carbon Dioxide Level 28, Anion Gap 8, Blood Urea Nitrogen 14, Creatinine 0.75, Estimat Glomerular Filtration Rate > 60, BUN/Creatinine Ratio 19, Glucose Level 131H, Calcium Level 9.1 Microbiology 08/03/17 Blood Culture - Preliminary, Resulted No growth Assessment/Plan Assessment/Plan Admission Dx RLE Cellulitis Plan Continue IV abx - 1 gram Ancef Q8H. Consult wound care for evaluation of RLE. DVT prophylaxis with Lovenox 40 mg - pt refusing SCDs and has hx of DVT. Pt had doppler of RLE on in ED and was neg for thrombosis Follow labs - repeat CBC in AM Diagnosis/Problems: (1) Cellulitis and abscess of right lower extremity Assessment & Plan: continue ancef, consult to wound care; appreciate recommendations and orders -will dc morphine due to pt complaint that it does not help his pain -pt encouraged to use PO pain medication - percocet 5/325 2 tabs Q6H PRN pain -Fentanyl 50 mcg IVP PRN breakthrough pain 08/05 appears to have slight improvement, continue elevation and Ancef, US yesterday with no DVT, did note monophasic pulse but pedal pulse easily palpable today, would suggest further testing with segmental pressures, etc, but he declines currently, may consider when cellulitis resolved (2) History of DVT (deep vein thrombosis) (3) Edema of right lower extremity Assessment & Plan: elevate leg above level of heart as much as possible (4) Obesity Qualifiers: Qualified Codes: E66.09 - Other obesity due to excess calories; Z68.33 - Body mass index (bmi) 33.0-33.9, adult (5) Hypertension Qualifiers: Qualified Codes: I10 - Essential (primary) hypertension Clinical Quality Measures DVT/VTE Risk/Contraindication: VTE Present on Admission: No Risk Factor Score Per Nursin RFS Level Per Nursing on Admit: 4+=Very High Contraindications-Mechi: Patient refusal of tx REJI ODEN MD Aug 05, 2017 2:09 pm
[2017-08-05 16:00] VITALS: BP 123/83
[2017-08-05] MEDS: ENOXAPARIN 40 MG/0.4 ML (LOVENOX) SYR SC SCH (17:02)
[2017-08-05 20:25] VITALS: BP 105/66
[2017-08-06] VITALS: BP 116/56
[2017-08-06] MEDS: oxyCODONE/APAP 5/325MG (PERCOCET 5) TABLET PO PRN ×2 (05:31→12:35)
[2017-08-06 06:06] LABS: MEAN PLATELET VOLUME 10.3 FL (7.4-10.4); RED BLOOD COUNT 4.85 10^6/uL (4.35-5.85); RED CELL DISTRIBUTION WIDTH 13.3 % (10.0-14.5); WHITE BLOOD COUNT 12.8 10^3/uL (4.3-11.0)
[2017-08-06 06:24] LABS: ANION GAP 10 MMOL/L (5-14); BLOOD UREA NITROGEN 13 MG/DL (7-18); BUN/CREATININE RATIO 16; CALCIUM 8.9 MG/DL (8.5-10.1); CARBON DIOXIDE 27 MMOL/L (21-32); CHLORIDE 101 MMOL/L (98-107); CREATININE SERUM 0.79 MG/DL (0.60-1.30); GFR ESTIMATED > 60; GLUCOSE 161 MG/DL (70-105); POTASSIUM 4.6 MMOL/L (3.6-5.0); SODIUM 138 MMOL/L (135-145)
[2017-08-06] MEDS: CATHETER FLUSH 10 ML SYR IV SCH ×2 (06:52→09:36)
[2017-08-06 08:00] VITALS: BP 122/77
[2017-08-06] MEDS: KETOROLAC 30 MG/ML VIAL IVP PRN (09:35)
[2017-08-06] MEDS: fentaNYL INJECTION 100 MCG/2 ML AMP IVP PRN (09:35)
[2017-08-06] MEDS: ceFAZolin INJECTION 1,000 MG in NS (IVPB) 50 ML IV SCH (09:37)
[2017-08-06] MEDS ORDERED: OXYC-471 PO (10:23)
--- NOTE | 2017-08-06 10:25 | Discharge Instructions ---
Discharge Inst-[facility] Discharge Medications New, Converted or Re-Newed RX: RX on Chart New Medications: Oxycodone HCl/Acetaminophen (Oxycodone-Acetaminophen 5-325) 1 Each Tablet 1 TAB PO Q6H PRN for PAIN-MODERATE, #15 TAB 0 Refills Continued Medications: Albuterol (Proair Hfa) 8.5 Gm Hfa.aer.ad 2 PUFF IH QID PRN for SHORTNESS OF BREATH, INHALER LAST FILLED 11-01-16 Clindamycin HCl (Cleocin HCl) 300 Mg Capsule 300 MG PO QID, #40 CAP 10 DAY SUPPLY FILLED 08-02-17 Fluticasone/Salmeterol (Advair 500 Mcg/50 Mcg 60's) 1 Disk Inhp 1 PUFF INH BID PRN for SHORTNESS OF BREATH, INHALER LAST FILLED 11-01-16 Naproxen Sodium (Aleve) 220 Mg Tablet 440 MG PO Q8H PRN for PAIN-MILD, TAB TAKES 2 (220MG) TABLETS Nitroglycerin (Nitroglycerin) 0.4 Mg Tab.subl 0.4 MG SL UD PRN for CHEST PAIN, TAB Tiotropium [place] (Spiriva) 1 Inh Aerp 1 PUFF IH DAILY PRN for SHORTNESS OF BREATH, EA LAST FILLED 11-01-16 Patient Instructions Goal/Follow Up Appt: Follow up at [facility] on 08/09 at 2 pm, transportation will pick you up at 1:40. Return to The Hospital For: Fever, worsening swelling/redness in leg, inability to keep antibiotics down Activity & Diet Discharge Diet: No Restrictions Activity as Tolerated: Yes (Keep leg elevated at all times when at rest) Orders-Post D/C & Referrals Pneu Vac Indicated: Yes Copy Copies To 1: GREGORIA HUDSON BETHANY N MD Aug 06, 2017 10:25 am
[2017-08-06 13:30] VITALS: BP 122/77
--- NOTE | 2017-08-06 20:59 | Discharge Summary ---
Diagnosis/Chief Complaint Date of Admission Aug 03, 2017 at 3:16 pm Date of Discharge Aug 06, 2017 at 1:38 pm Admission Diagnosis Admission Diagnosis (1) Cellulitis and abscess of right lower extremity (2) History of DVT (deep vein thrombosis) (3) Edema of right lower extremity (4) Obesity (5) Hypertension Discharge Diagnosis (1) Cellulitis and abscess of right lower extremity Assessment & Plan: continue ancef, consult to wound care; appreciate recommendations and orders -will dc morphine due to pt complaint that it does not help his pain -pt encouraged to use PO pain medication - percocet 5/325 2 tabs Q6H PRN pain -Fentanyl 50 mcg IVP PRN breakthrough pain 08/05 appears to have slight improvement, continue elevation and Ancef, US yesterday with no DVT, did note monophasic pulse but pedal pulse easily palpable today, would suggest further testing with segmental pressures, etc, but he declines currently, may consider when cellulitis resolved 08/06- continued improvement in swelling and erythema, discharged with plan to complete clindamycin previously prescribed and 15 tabs of oxycodone for pain, discussed that this was for the acute infection and he would have to discuss with new provider (he wants to reestablish at [facility]) pain management plans (2) History of DVT (deep vein thrombosis) (3) Edema of right lower extremity Assessment & Plan: elevate leg above level of heart as much as possible (4) Obesity (5) Hypertension Chief Complaint/HPI Chief Complaint/HPI 56 yo male admitted from clinic for cellulitis and swelling in lower leg. Discharge Summary-Simple/Stand Discharge Physical Examination Allergies: Coded Allergies: Sulfa (Sulfonamide Antibiotics) (Verified Allergy, Unknown, 05/09/14) Vitals & I&Os Vital Sign - Last 12Hours Date Time Temp Pulse Resp B/P (MAP) Pulse Ox O2 Delivery O2 Flow Rate FiO2 08/06/17 13:30 79 20 122/77 97 Room Air 08/06/17 08:00 98.2 General Appearance: Alert, No Acute Distress Respiratory: Clear to Auscultation, Normal Air Movement Cardiovascular: Regular Rate, No Murmurs Extremities: Other (right lower leg with marked erythema slightly improved from yesterday and edema much improved from yesterday) Neuro: Normal Speech Psych/Mental Status: Mental Status NL Hospital Course See final discharge diagnosis. Discharge Instructions to patient/family Please see electronic discharge instructions given to patient. Discharge Medications Reviewed and agree with Discharge Medication list on patient's Discharge Instruction sheet Clinical Quality Measures DVT/VTE Risk/Contraindication: VTE Present on Admission: No Risk Factor Score Per Nursin RFS Level Per Nursing on Admit: 4+=Very High Contraindications-Mechi: Patient refusal of tx Copy Copies To 1: FISH Samuels BETHANY N MD Aug 06, 2017 8:59 pm
== END 2017-08-06 13:38 | disposition home or self-care (01) | DRG 603 ==
LOC: EDSTATUS 12:30 → UNDOADMOB 15:16 → 4TH 15:16 → UNDODISOB 08-06 13:38
PROVIDERS: ADMIT Pediatrics; ATTEND Pediatrics
DX: L03.115 Cellulitis of right lower limb (principal); I10 Essential (primary) hypertension; E11.9 Type 2 diabetes mellitus without complications; I87.2 Venous insufficiency (chronic) (peripheral); I73.9 Peripheral vascular disease, unspecified; I25.10 Atherosclerotic heart disease of native coronary artery without angina pectoris; J44.9 Chronic obstructive pulmonary disease, unspecified; E66.9 Obesity, unspecified; Z68.33 Body mass index [BMI] 33.0-33.9, adult; Z91.19 Patient's noncompliance with other medical treatment and regimen; Z86.718 Personal history of other venous thrombosis and embolism
CPT/HCPCS: 36415; 80048; 80053; 81000; 83605; 85007; 85027; 86141; 87040; 94640

== ENCOUNTER → 2017-08-16 | Outpatient (CLI) | payer MEDICAID ==
[~2017-08-16] MED LIST changes: +CLIN300C3 PO; +NAPR220T66 PO; +NITR0.4T39 SL; +OXYC-471 PO
--- NOTE | 2017-08-16 13:36 | Diagnostic Imaging Report ---
PROCEDURE: CT chest without contrast. TECHNIQUE: Multiple contiguous axial images were obtained through the chest without the use of intravenous contrast. INDICATION: Pulmonary nodules. COMPARISON: 12/02/2016. FINDINGS: There are pulmonary nodules seen on the prior exam of 12/02/2016 that appear less prominent on the current exam with only 2 mm nodule seen in the right middle lobe and 6 mm nodule in the posterior aspect of the left lower lobe. There is no significant consolidation, mass, or suspicious nodule seen otherwise. The heart size is normal. There is no mediastinal mass. No mediastinal lymphadenopathy. No axillary lymphadenopathy seen. No obvious hilar mass. Prominent coronary artery calcifications are seen. IMPRESSION: The previously seen pulmonary nodules appear less prominent compared to the prior study in favor of benign etiology. No further follow-up is felt to be necessary at this time. Dictated by: Dictated on workstation # [id number]
== END ==
LOC: RAD 09:24
PROVIDERS: ATTEND Nurse Practitioner Family
DX: R91.8 Other nonspecific abnormal finding of lung field (principal)
CPT/HCPCS: 71250